=== PATIENT | female | born 1940 | race Caucasian/White ===

== ENCOUNTER 2018-12-07 20:06 | Inpatient (IN) | payer OTHER ==
[2018-12-07] MEDS ORDERED: SODIUM CHLORIDE 0.9% 1000 ML INFUS.BAG IV ONE (20:34)
[2018-12-07] MEDS ORDERED: LORazepam 2 MG/ML SDV VIAL ONE ×3 (20:45→21:20)
--- NOTE | 2018-12-07 20:49 | PDOC ---
History of Present Illness - General Stated Complaint: AMS Time Seen by Provider: 12/07/18 20:08 - History of Present Illness Initial Comments: HPI: 78 y/o female presenting to [facility] from [facility] for altered mental status. Pt unable/unwilling to answer questions at time of interview. Pt has a history of cerebral palsy. Is normally alert, oriented, and converstant at baseline. Wheelchair bound at baseline. Called to discuss case with Health Care Proxy: Stephan Holly, brother, . Confirmed the documented baseline. States he will not be able to come to the bedside as he is also elderly. Medical Hx: - As documented below Review of Systems: Unable to obtain secondary to pt condition. Physical Examination: Constitutional: Elderly adult female in no acute distress or obvious discomfort. Found semi-fowlers on hospital hallway bed. Alert but completely disoriented. Making non-specific sounds. Head: Normocephalic. No obvious external signs of trauma. Eyes: PERRL. Sclerae white. Conjunctiva moist and not injected. Ears: Hearing grossly intact. Nose: No nasal discharge. Neck: Supple, trachea is midline. Cardiovascular / Chest: Regular rate and regular rhythm. No murmur, rubs, clicks, or gallops. Peripheral pulses: radial pulses full. Respiratory: Breathing unlabored. Equal chest rise and fall. Clear to auscultation bilaterally. No stridor, no wheezing, no rhonchi. Gastrointestinal: abdomen is soft, non-tender, non-distended. Neuro: Moving all four extremities spontaneously. Skin: Warm, dry, and intact. No bruising, rashes, or other lesions. MDM: *Reviewed vital signs, nursing notes, and prior visit documentation (if available). 78 y/o female with altered mental status. Febrile. Vitals remarkable for tachycardia without hypotension. Physical exam as described above. CBC remarkable for mild leukocytosis without left shift. No significant electrolyte derangement. No significant acid-base derangement on VBG. Head CT unremarkable for acute process. TSH within normal limits. Required multiple administrations of Ativan, Ketamine, and Benadryl for sedation to obtain medically necessary tests. 12/08/18 00:27 Pt signed out to resident Dr. Prieto after he was verbally appraised of the pts HPI, current ED course, and plan of management. Will follow up on pending urinalysis. Anticipate admission for altered mental status. Past History - Past Medical History Allergies/Adverse Reactions: Allergies Allergy/AdvReac Type Severity Reaction Status Date / Time aspirin Allergy Unknown Verified 12/07/18 20:42 Home Medications: Ambulatory Orders Baclofen [Lioresal -] 10 mg PO TID 12/08/18 Dextran 70/Hypromellose/Pf [Artificial Tears Drops] 1 each OP BID 12/08/18 Docusate Sodium [Colace] 200 mg PO HS 12/08/18 Duloxetine HCl 60 mg PO DAILY 12/08/18 Gabapentin [Neurontin] 300 mg PO Q8H 12/08/18 Levothyroxine [Synthroid -] 75 mcg PO DAILY 12/08/18 Oxycodone HCl/Acetaminophen [Percocet 5-325 mg Tablet] 1 tab PO PRN PRN Sennosides [Senna] 8.6 mg PO DAILY 12/08/18 Lactose-Reduced Food [Ensure Compact] 118 ml PO BID #60 liquid 12/14/18 Multivitamins [Multivit ([facility] Formulary)] 1 tab PO DAILY #30 tab 12/14/18 ED Treatment Course - LABORATORY CBC & Chemistry Diagram: 12/13/18 06:30 12/14/18 07:00 *DC/Admit/Observation/Transfer Diagnosis at time of Disposition: Altered mental status, UTI (urinary tract infection) - Discharge Dispostion Disposition: SNF FACILITY Condition at time of disposition: Improved - Referrals - Patient Instructions - Post Discharge Activity
--- NOTE | 2018-12-07 21:04 | PDOC ---
Documentation entered by Priya Fong SCRIBE, acting as scribe for Farida Foy DO. Farida Fyo DO: This documentation has been prepared by the Ajit womack Daisy, SCRIBE, under my direction and personally reviewed by me in its entirety. I confirm that the documentation accurately reflects all work, treatment, procedures, and medical decision making performed by me. Attending Attestation - Resident Resident Name: Gunnar Zaragoza - ED Attending Attestation I have performed the following: I have examined & evaluated the patient, The case was reviewed & discussed with the resident, I agree w/resident's findings & plan - HPI HPI: 12/07/18 20:39 The patient is a 78YOF who was sent in from [facility] for evaluation of altered mental status. Patient is known to be awake, alert, and nonambulatory at baseline. Patient was sent in today because she became nonverbal with intermittent moaning and agitation. Patient is DNR. - Physicial Exam PE: 12/07/18 20:39 ADULT PHYSICAL EXAM Constitutional: (+) Acutely altered and agitated. (+) Nonverbal, only moaning. Head: Normocephalic. Atraumatic Eyes: (+) Pupils are 3mm and reactive. EOMI. Conjunctivae are not pale. Cardiovascular: Regular rate. Regular rhythm. S1, S2 regular. Distal pulses are 2+ and symmetric. Pulmonary/Chest: No evidence of respiratory distress. Clear to auscultation bilaterally No wheezing, rales or rhonchi. Abdominal: Soft and non-distended. There is no tenderness. Musculoskeletal: Moving all extremities. Skin: No external signs of trauma. Neurological: Awake and oriented x1 (name) - Medical Decision Making 12/07/18 21:02 I, Dr. Farida Foy DO, attest that this document has been prepared under my direction and personally reviewed by me in its entirety. I further attest, that it accurately reflects all work, treatment, procedures and medical decision -making performed by me. 12/07/18 21:02 a/p: 78yo female with hx of CP -normally awake, alert, oriented -altered ms from [facility] -moving all extremities -not hot to touch, will do rectal temp -concern for infection vs cva/bleed vs metabolic enceph -will send labs, cultures, ua, head ct, cxr -will need admission -will need ativan for agitation control to obtain imaging -resident discussed the case with her brother Stephan who is her POA -will monitor and reassess 12/07/18 22:00 pt still very agitated will add ketamine to help with sedation to obtain head ct 12/08/18 01:11 pt with UTI will start rocephin 12/08/18 01:35 pt with a fever rectally pt will need admission for further eval and iv abx for the uti Heart Score/ECG Review - ECG Intrepretation Comment:: 12/07/18 22:00 sinus tach at 124, lafb, no acute st/t wave findings, qtc 468
[2018-12-07 21:12] LABS: VENOUS PC02 43.2 mmHg (41-51); VENOUS PH 7.41 (7.31-7.41)
[2018-12-07 21:15] LABS: VENOUS PO2 24.2 mmHg (30-40)
[2018-12-07 21:16] LABS: BASO % 0.5 % (0-2.0); EOS % 1.5 % (0-4.5); HEMATOCRIT 44.8 % (32.4-45.2); HEMOGLOBIN 14.5 GM/dL (10.7-15.3); LYMPH % 24.4 % (8-40); MCH 30.9 pg (25.7-33.7); MCHC 32.3 g/dl (32.0-36.0); MEAN CELL VOLUME 95.8 fl (80-96); MEAN PLT VOLUME 8.8 fl (7.5-11.1); MONO % 10.1 % (3.8-10.2); NEUT % 63.5 % (42.8-82.8); PLATELET COUNT 295 K/MM3 (134-434); RBC 4.68 M/mm3 (3.60-5.2); RDW 14.1 % (11.6-15.6); WHITE BLOOD COUNT 10.6 K/mm3 (4.0-10.0)
[2018-12-07 21:37] LABS: INR 0.93 (0.83-1.09)
[2018-12-07 21:40] LABS: ACTIVATED PTT 29.2 SECONDS (25.2-36.5)
[2018-12-07 21:51] LABS: ALBUMIN 3.5 g/dl (3.4-5.0); ALK PHOS 123 U/L (45-117); ANION GAP 6 MMOL/L (8-16); BILIRUBIN,TOTAL 0.5 mg/dL (0.2-1); BLOOD UREA NITROGEN 20 mg/dL (7-18); CALCIUM 9.4 mg/dL (8.5-10.1); CHLORIDE 108 mmol/L (98-107); CO2 26 mmol/L (21-32); CREATININE 0.5 mg/dL (0.55-1.3); GLUCOSE,RANDOM 106 mg/dL (74-106); MAGNESIUM 2.5 mg/dL (1.8-2.4); POTASSIUM 4.6 mmol/L (3.5-5.1); SGOT/AST 16 U/L (15-37); SGPT/ALT 23 U/L (13-61); SODIUM 140 mmol/L (136-145); TOT PROT 6.7 g/dl (6.4-8.2)
[2018-12-07] MEDS ORDERED: KETAMINE HCL 200 MG/20 ML VIAL IVPUSH ONE (21:56)
[2018-12-07] MEDS ORDERED: KETAMINE HCL 200 MG/20 ML VIAL ONE (22:00)
[2018-12-08] MEDS ORDERED: ACETAMINOPHEN 1000 MG/100 ML VIAL (NON FORMULARY) IVPB ONE (00:26)
--- NOTE | 2018-12-08 00:38 | PDOC ---
*Physical Exam - Vital Signs Last Vital Signs Temp Pulse Resp BP Pulse Ox 100.6 F H 118 H 20 120/51 L 95 12/08/18 00:13 12/07/18 20:15 12/07/18 20:15 12/07/18 20:15 12/07/18 20:15 - Physical Exam Comments: 12/08/18 02:43 General Appearance: Nourished. No Apparent Distress HEENT: No Pharyngeal Erythema, Tonsillar Exudate, Tonsillar Erythema Neck: No Cervical Lymphadenopathy Respiratory/Chest: Lungs Clear, Normal Breath Sounds. No Crackles, Rales, Rhonchi, Wheezing Cardiovascular: Regular Rhythm, Regular Rate. No Murmur, Gallops, Rubs Gastrointestinal/Abdominal: Normal Bowel Sounds, Soft. No Guarding, Rebound, Tenderness Musculoskeletal: No CVA Tenderness Extremity: Normal Capillary Refill Integumentary: Normal Color, Dry, Warm Neurologic: Arousable. Non-verbal. Moving all four extremities. ED Treatment Course - LABORATORY CBC & Chemistry Diagram: 12/07/18 20:39 12/07/18 20:39 - ADDITIONAL ORDERS Additional order review: Laboratory Results 12/07/18 12/07/18 12/07/18 20:39 20:39 20:39 PT with INR INR PTT (Actin FS) VBG pH POC VBG pCO2 POC VBG pO2 VBG HCO3 VBG O2 Sat (Bright) VBG Base Excess Sodium 140 Potassium 4.6 Chloride 108 H Carbon Dioxide 26 Anion Gap 6 L BUN 20 H Creatinine 0.5 L Est GFR (CKD-EPI)AfAm 105.94 Est GFR (CKD-EPI)NonAf 91.41 Random Glucose 106 Lactic Acid 1.6 Calcium 9.4 Magnesium 2.5 H Total Bilirubin 0.5 AST 16 ALT 23 Alkaline Phosphatase 123 H Creatine Kinase 78 Troponin I < 0.02 Total Protein 6.7 Albumin 3.5 TSH 3.07 Blood Type O POSITIVE Antibody Screen Negative 12/07/18 12/07/18 20:39 20:39 PT with INR 11.00 INR 0.93 PTT (Actin FS) 29.2 VBG pH 7.41 POC VBG pCO2 43.2 POC VBG pO2 24.2 L VBG HCO3 26.8 VBG O2 Sat (Bright) 36.7 L VBG Base Excess 2.3 H Sodium Potassium Chloride Carbon Dioxide Anion Gap BUN Creatinine Est GFR (CKD-EPI)AfAm Est GFR (CKD-EPI)NonAf Random Glucose Lactic Acid Calcium Magnesium Total Bilirubin AST ALT Alkaline Phosphatase Creatine Kinase Troponin I Total Protein Albumin TSH Blood Type Antibody Screen 12/07/18 20:39 RBC 4.68 MCV 95.8 MCHC 32.3 RDW 14.1 MPV 8.8 Neutrophils % 63.5 Lymphocytes % 24.4 Monocytes % 10.1 Eosinophils % 1.5 Basophils % 0.5 - Medications Given in the ED: ED Medications Discontinued Medications Generic Name Dose Route Start Last Admin Trade Name Freq PRN Reason Stop Dose Admin Ketamine HCl 15 mg 12/07/18 21:56 12/07/18 22:06 Ketalar - IVPUSH 12/07/18 21:57 15 mg ONCE ONE Administration Lorazepam 1 mg 12/07/18 20:34 12/07/18 20:53 Ativan Injection - IVPUSH 12/07/18 20:35 1 mg ONCE ONE Administration Lorazepam 1 mg 12/07/18 21:04 12/07/18 21:08 Ativan Injection - IVPUSH 12/07/18 21:05 1 mg ONCE ONE Administration Lorazepam 1 mg 12/07/18 21:19 12/07/18 21:20 Ativan Injection - IM 12/07/18 21:20 1 mg ONCE ONE Administration Sodium Chloride 1,000 ml 12/07/18 20:34 12/07/18 20:53 Normal Saline - IV 12/07/18 20:35 1,000 ml ONCE ONE Administration Progress Note - Progress Note Progress Note: Received Sign out from Dr. Zaragoza. The patient is an 78 year old female with a history of CP who presents for [facility] for evaluate of acute altered mental status. Head CT is unremarkable. Chest plain film is unremarkable. CBC, cmp, are unremarkable. The patient is pending UA and admission for altered mental status. Medical Decision Making - Medical Decision Making 12/08/18 02:44 UA demonstrates positive leuk esterase with elevated wbc consistent with a UTI. We will treat with ceftriaxone here in the ED. The patient will require admission for further management. We discussed the case with the admitting team who accepted the patient for admission. *DC/Admit/Observation/Transfer Diagnosis at time of Disposition: Altered mental status Qualifiers: Altered mental status type: unspecified Qualified Code(s): R41.82 - Altered mental status, unspecified UTI (urinary tract infection) Qualifiers: Urinary tract infection type: site unspecified Hematuria presence: without hematuria Qualified Code(s): N39.0 - Urinary tract infection, site not specified - Discharge Dispostion Condition at time of disposition: Stable Decision to Admit order: Yes - Referrals - Patient Instructions - Post Discharge Activity
[2018-12-08 00:44] LABS: EPI CELLS 0.3 /HPF (0-5/HPF); URINE APPEARANCE CLOUDY; URINE BACTERIA 8065.1 /hpf (NEGATIVE); URINE BILIRUBIN NEGATIVE (NEGATIVE); URINE CASTS 21 /lpf (0-8); URINE COLOR YELLOW; URINE GLUCOSE (UA) NEGATIVE (NEGATIVE); URINE KETONE TRACE (NEGATIVE); URINE LEUK ESTERASE 3+ (NEGATIVE); URINE NITRITE NEGATIVE (NEGATIVE); URINE PROTEIN NEGATIVE (NEGATIVE); URINE RBC 5 /hpf (0-4); URINE UROBILINOGEN 0.2 mg/dL (0.2-1.0); URINE WBC 159 /hpf (0-5)
[2018-12-08] MEDS ORDERED: ACETAMINOPHEN INJECTION 100 ML IVPB ONE (00:46)
[2018-12-08] MEDS ORDERED: CEFTRIAXONE 1 GM in DEXTROSE 5%-WATER - 100 ML IVPB ONE (01:12)
[2018-12-08] MEDS ORDERED: CEFTRIAXONE 1 GM/50 ML BAG ONE (01:16)
--- NOTE | 2018-12-08 02:21 | PN ---
Teaching Attending Note Name of Resident: Aimee Pandey ATTENDING PHYSICIAN STATEMENT I saw and evaluated the patient. I reviewed the resident's note and discussed the case with the resident. I agree with the resident's findings and plan as documented. SUBJECTIVE: Patient is an 78 year old woman with PMH of hypothyroidism and ?constipation who was sent in from [facility] for evaluation of altered mental status. Patient is known to be awake, alert, and nonambulatory at baseline. Not much additional information about her PMH is available from the [place]. Patient was sent in today because she became nonverbal with intermittent moaning and agitation. In the ER she was noted to be agitated and restless and got ativan as well as ketamine. She has DNR/DNI instructions. OBJECTIVE: Awake Vital Signs Period Temp Pulse Resp BP Sys/Zhao Pulse Ox Last 24 Hr 100.6 F-100.6 F 118 20 120/51 95 HEENT: No Jaundice, eye redness or discharge, PERRLA, EOMI. Normocephalic, atraumatic. External ears are normal; No nasal discharge. Neck: Supple, nontender. No palpable adenopathy or thyromegaly. No JVD Chest: Good effort. Clear to auscultation and percussion. Heart: Regular. No S3, rub or murmur Abdomen: Not distended, soft, nontender and no HSM. No rebound or guarding. Normal bowel sounds. Ext: Peripheral pulses intact. No leg edema. Right arevalo ulcer. Skin: Warm and dry. No petechiae, rash or ecchymosis. Neuro: Alert. Oriented to person. CN 2-12 grossly intact. Sensation grossly intact in all four extremities and DTR are symmetric. Psych: Appropriate mood and affect. Current Medications Generic Name Dose Route Start Last Admin Trade Name Freq PRN Reason Stop Dose Admin Heparin Sodium (Porcine) 5,000 unit 12/08/18 10:00 Heparin - SQ Q8H-IV MURTAZA Sodium Chloride 1,000 mls @ 75 mls/hr 12/08/18 02:45 Normal Saline - IV ASDIR MURTAZA Abnormal Lab Results 12/07/18 12/07/18 12/07/18 20:39 20:39 20:39 WBC 10.6 H POC VBG pO2 24.2 L VBG O2 Sat (Bright) 36.7 L VBG Base Excess 2.3 H Chloride 108 H Anion Gap 6 L BUN 20 H Creatinine 0.5 L Magnesium 2.5 H Alkaline Phosphatase 123 H Urine Ketones Ur Leukocyte Esterase 12/08/18 00:06 WBC POC VBG pO2 VBG O2 Sat (Bright) VBG Base Excess Chloride Anion Gap BUN Creatinine Magnesium Alkaline Phosphatase Urine Ketones Trace H Ur Leukocyte Esterase 3+ H ASSESSMENT AND PLAN: 1. Sepsis due to UTI - Abnormal mentation likely due to toxic metabolic encephalopathy. No acute pathology on head CT and CXR. EKG shows sinus tachycardia with no significant ST-T wave changes. Got IV NS in the ER as well as IV Rocephin. Since she is from a [facility], will treat with IV Zosyn pending culture report, and continue IV NS. Will get speech and swallow evaluation, consult PT and ID. Continue treatment for constipation. 2. DVT prophylaxis - Lovenox 40 mg SQ q 24 hours. 3. Advance directives - Full code
--- NOTE | 2018-12-08 02:32 | HP ---
CHIEF COMPLAINT: AMS PCP: [facility] HISTORY OF PRESENT ILLNESS: Patient is a poor historian. Currently Nonverbal. Unable to obtain history. Patient is an 78 yo F with a known history of hypothyroidism, presented from [facility] because of altered mental status. She is known to be awake, alert, and nonambulatory at baseline. Limited information was provided on this patient. In the ED, patient was moaning agitated. She was given a total of 3mg Ativan and ketamine. She was febrile with 100.6 rectal temp. U/a was positive with 3+ LE, 159 WBC. Ceftriaxone was given. Patient is DNR/DNI ER course was notable for: (1) Head CT unremarkable (2) U/a + (3) Tachy, 100.6 Temp Recent Travel: n/a PAST MEDICAL HISTORY: n/a Social History: Smoking: n/a Alcohol: n/a Drugs: n/a Family History: n/a Allergies aspirin Allergy (Unknown, Verified 12/07/18 20:42) HOME MEDICATIONS: REVIEW OF SYSTEMS unable to obtain PHYSICAL EXAMINATION Vital Signs - 24 hr 12/07/18 12/08/18 20:15 00:13 Temperature 100.6 F H 100.6 F H Pulse Rate 118 H Respiratory 20 Rate Blood Pressure 120/51 L O2 Sat by Pulse 95 Oximetry (%) GENERAL: moaning, nonverbal. HEAD: Normal with no signs of trauma. EYES: conjunctiva clear. EARS, NOSE, THROAT: oropharynx clear without exudates. dry mucous membranes LUNGS: CTA b/l. no wheezing, rales, or rhonchi HEART: RRR, no murmurs appreciated, s1, s2 ABDOMEN: Soft, nontender, not distended, normoactive bowel sounds LOWER EXTREMITIES:R ant arevalo wound from movement friction. redness around the area. bleeding. no pus. 2+ pulses, No peripheral edema. Laboratory Results - last 24 hr 12/07/18 12/07/18 12/07/18 20:39 20:39 20:39 WBC 10.6 H RBC 4.68 Hgb 14.5 Hct 44.8 MCV 95.8 MCH 30.9 MCHC 32.3 RDW 14.1 Plt Count 295 MPV 8.8 Absolute Neuts (auto) 6.7 Neutrophils % 63.5 Lymphocytes % 24.4 Monocytes % 10.1 Eosinophils % 1.5 Basophils % 0.5 Nucleated RBC % 0 PT with INR 11.00 INR 0.93 PTT (Actin FS) 29.2 VBG pH 7.41 POC VBG pCO2 43.2 POC VBG pO2 24.2 L VBG HCO3 26.8 VBG O2 Sat (Bright) 36.7 L VBG Base Excess 2.3 H Sodium Potassium Chloride Carbon Dioxide Anion Gap BUN Creatinine Est GFR (CKD-EPI)AfAm Est GFR (CKD-EPI)NonAf Random Glucose Lactic Acid Calcium Magnesium Total Bilirubin AST ALT Alkaline Phosphatase Creatine Kinase Troponin I Total Protein Albumin TSH Urine Color Urine Appearance Urine pH Ur Specific Rosalia Urine Protein Urine Glucose (UA) Urine Ketones Urine Blood Urine Nitrite Urine Bilirubin Urine Urobilinogen Ur Leukocyte Esterase Urine WBC (Auto) Urine RBC (Auto) Urine Casts (Auto) U Epithel Cells (Auto) Urine Bacteria (Auto) Blood Type Antibody Screen 12/07/18 12/07/18 12/07/18 20:39 20:39 20:39 WBC RBC Hgb Hct MCV MCH MCHC RDW Plt Count MPV Absolute Neuts (auto) Neutrophils % Lymphocytes % Monocytes % Eosinophils % Basophils % Nucleated RBC % PT with INR INR PTT (Actin FS) VBG pH POC VBG pCO2 POC VBG pO2 VBG HCO3 VBG O2 Sat (Bright) VBG Base Excess Sodium 140 Potassium 4.6 Chloride 108 H Carbon Dioxide 26 Anion Gap 6 L BUN 20 H Creatinine 0.5 L Est GFR (CKD-EPI)AfAm 105.94 Est GFR (CKD-EPI)NonAf 91.41 Random Glucose 106 Lactic Acid 1.6 Calcium 9.4 Magnesium 2.5 H Total Bilirubin 0.5 AST 16 ALT 23 Alkaline Phosphatase 123 H Creatine Kinase 78 Troponin I < 0.02 Total Protein 6.7 Albumin 3.5 TSH 3.07 Urine Color Urine Appearance Urine pH Ur Specific Rosalia Urine Protein Urine Glucose (UA) Urine Ketones Urine Blood Urine Nitrite Urine Bilirubin Urine Urobilinogen Ur Leukocyte Esterase Urine WBC (Auto) Urine RBC (Auto) Urine Casts (Auto) U Epithel Cells (Auto) Urine Bacteria (Auto) Blood Type O POSITIVE Antibody Screen Negative 12/08/18 00:06 WBC RBC Hgb Hct MCV MCH MCHC RDW Plt Count MPV Absolute Neuts (auto) Neutrophils % Lymphocytes % Monocytes % Eosinophils % Basophils % Nucleated RBC % PT with INR INR PTT (Actin FS) VBG pH POC VBG pCO2 POC VBG pO2 VBG HCO3 VBG O2 Sat (Bright) VBG Base Excess Sodium Potassium Chloride Carbon Dioxide Anion Gap BUN Creatinine Est GFR (CKD-EPI)AfAm Est GFR (CKD-EPI)NonAf Random Glucose Lactic Acid Calcium Magnesium Total Bilirubin AST ALT Alkaline Phosphatase Creatine Kinase Troponin I Total Protein Albumin TSH Urine Color Yellow Urine Appearance Cloudy Urine pH 7.0 Ur Specific Rosalia 1.017 Urine Protein Negative Urine Glucose (UA) Negative Urine Ketones Trace H Urine Blood Trace Urine Nitrite Negative Urine Bilirubin Negative Urine Urobilinogen 0.2 Ur Leukocyte Esterase 3+ H Urine WBC (Auto) 159 Urine RBC (Auto) 5 Urine Casts (Auto) 21 U Epithel Cells (Auto) 0.3 Urine Bacteria (Auto) 8065.1 Blood Type Antibody Screen -EKG: sinus tach at 124, lafb, no acute st/t wave findings, qtc 468 ASSESSMENT/PLAN: 78 yo F with a known history of hypothyroidism, presented from [facility] because of altered mental status. #Acute metabolic encephalopathy and Sepsis 2/2 UTI -U/A + -Tachy, febrile 100.6 -Blood cultures, urine cultures pending -Head CT unremarkable -Cxr Unremarkable -1 x ceftriaxone given in ED -Start Zosyn. Patient from senior living -ID consult: Dr. Valle -1L Bolus NS in ED -IV fluids: NS @75 ml/ hour -Speech/swallow -npo -fall precautions -tylenol prn for fever #Hypothyroidism -on Levothyroxin -med rec #FEN -Iv fluids Ns @ 75ml /hour -monitor -NPO #Dvt ppx -hep sq med-rec needed. dispo: med-surge Visit type - Emergency Visit Emergency Visit: Yes ED Registration Date: 12/08/18 Care time: The patient presented to the Emergency Department on the above date and was hospitalized for further evaluation of their emergent condition. - New Patient This patient is new to me today: Yes Date on this admission: 12/10/18 - Critical Care Critical Care patient: No
[2018-12-08] MEDS ORDERED: PIPERACILLIN/TAZOB 3.375 GM 3.375 GM in DEXTROSE 5%-WATER - 50 ML IVPB SCH (02:45)
[2018-12-08] MEDS ORDERED: PIPERACILLIN/TAZOB 3.375 GM 3.375 GM/50 ML BAG IVPB ONE (02:51)
[2018-12-08] MEDS ORDERED: ACETAMINOPHEN 1000 MG/100 ML VIAL (NON FORMULARY) IVPB PRN (02:52)
[2018-12-08] MEDS: SODIUM CHLORIDE 1,000 ML IV SCH (02:59)
[2018-12-08] MEDS: PIPERACILLIN/TAZOB 3.375 GM 3.375 GM in DEXTROSE 5%-WATER - 50 ML IVPB SCH ×3 (02:59→18:09)
[2018-12-08] MEDS ORDERED: HEPARIN NA (PORCINE) 5,000 UNITS/ML 1ML VIAL ONE ×2 (03:54→07:19)
[2018-12-08 06:06] LABS: BASO % 0.4 % (0-2.0); HEMATOCRIT 43.3 % (32.4-45.2); HEMOGLOBIN 14.2 GM/dL (10.7-15.3); LYMPH % 9.2 % (8-40); MCHC 32.8 g/dl (32.0-36.0); MEAN CELL VOLUME 94.7 fl (80-96); MEAN PLT VOLUME 8.4 fl (7.5-11.1); MONO % 8.9 % (3.8-10.2); NEUT % 81.5 % (42.8-82.8); PLATELET COUNT 313 K/MM3 (134-434); RBC 4.57 M/mm3 (3.60-5.2); RDW 13.8 % (11.6-15.6); WHITE BLOOD COUNT 15.1 K/mm3 (4.0-10.0)
[2018-12-08] MEDS ORDERED: SODIUM CHLORIDE 500 ML IV STA (06:47)
[2018-12-08 07:00] LABS: ALBUMIN 3.4 g/dl (3.4-5.0); CALCIUM 8.1 mg/dL (8.5-10.1); CREATININE 0.5 mg/dL (0.55-1.3); MAGNESIUM 1.8 mg/dL (1.8-2.4); PHOSPHOROUS 2.8 mg/dL (2.5-4.9); POTASSIUM 4.2 mmol/L (3.5-5.1); TOT PROT 6.5 g/dl (6.4-8.2)
[2018-12-08] MEDS: HEPARIN NA (PORCINE) 5,000 UNITS/ML 1ML VIAL SQ SCH ×3 (07:22→22:19)
--- NOTE | 2018-12-08 11:33 | PN ---
Physical Exam: SUBJECTIVE: Patient seen and examined. Pt. non-verbal, eyes closed, writhing around on the stretcher. OBJECTIVE: Vital Signs Period Temp Pulse Resp BP Sys/Zhao Pulse Ox Last 24 Hr 100.6 F-100.6 F 118-118 20-20 120-120/51-51 95-95 GENERAL: The patient is agitated, writhing around HEAD: Normal with no signs of trauma. EYES: Pupils fixed, sclera anicteric, conjunctiva clear. ENT: Ears normal, nares patent, oropharynx clear without exudates, dry mucous membranes. LUNGS: Breath sounds equal, clear to auscultation bilaterally, no wheezes, no crackles, no accessory muscle use. HEART: Regular rate and rhythm, S1, S2 without murmur ABDOMEN: Soft, tender to palpation?, nondistended, normoactive bowel sounds EXTREMITIES: 2+ dorsal pedal pulses, warm, well-perfused, no edema, b/l anterior arevalo wounds with erythema along the length of the arevalo. NEUROLOGICAL: Normal speech, gait not observed. PSYCH: Normal mood, normal affect. SKIN: Warm, dry, normal turgor, no rashes or lesions noted Laboratory Results - last 24 hr 12/07/18 12/07/18 12/07/18 20:39 20:39 20:39 WBC 10.6 H RBC 4.68 Hgb 14.5 Hct 44.8 MCV 95.8 MCH 30.9 MCHC 32.3 RDW 14.1 Plt Count 295 MPV 8.8 Absolute Neuts (auto) 6.7 Neutrophils % 63.5 Lymphocytes % 24.4 Monocytes % 10.1 Eosinophils % 1.5 Basophils % 0.5 Nucleated RBC % 0 PT with INR 11.00 INR 0.93 PTT (Actin FS) 29.2 VBG pH 7.41 POC VBG pCO2 43.2 POC VBG pO2 24.2 L VBG HCO3 26.8 VBG O2 Sat (Bright) 36.7 L VBG Base Excess 2.3 H Sodium Potassium Chloride Carbon Dioxide Anion Gap BUN Creatinine Est GFR (CKD-EPI)AfAm Est GFR (CKD-EPI)NonAf Random Glucose Lactic Acid Calcium Phosphorus Magnesium Total Bilirubin AST ALT Alkaline Phosphatase Creatine Kinase Troponin I Total Protein Albumin TSH Urine Color Urine Appearance Urine pH Ur Specific [place] Urine Protein Urine Glucose (UA) Urine Ketones Urine Blood Urine Nitrite Urine Bilirubin Urine Urobilinogen Ur Leukocyte Esterase Urine WBC (Auto) Urine RBC (Auto) Urine Casts (Auto) U Epithel Cells (Auto) Urine Bacteria (Auto) Blood Type Antibody Screen 12/07/18 12/07/18 12/07/18 20:39 20:39 20:39 WBC RBC Hgb Hct MCV MCH MCHC RDW Plt Count MPV Absolute Neuts (auto) Neutrophils % Lymphocytes % Monocytes % Eosinophils % Basophils % Nucleated RBC % PT with INR INR PTT (Actin FS) VBG pH POC VBG pCO2 POC VBG pO2 VBG HCO3 VBG O2 Sat (Bright) VBG Base Excess Sodium 140 Potassium 4.6 Chloride 108 H Carbon Dioxide 26 Anion Gap 6 L BUN 20 H Creatinine 0.5 L Est GFR (CKD-EPI)AfAm 105.94 Est GFR (CKD-EPI)NonAf 91.41 Random Glucose 106 Lactic Acid 1.6 Calcium 9.4 Phosphorus Magnesium 2.5 H Total Bilirubin 0.5 AST 16 ALT 23 Alkaline Phosphatase 123 H Creatine Kinase 78 Troponin I < 0.02 Total Protein 6.7 Albumin 3.5 TSH 3.07 Urine Color Urine Appearance Urine pH Ur Specific [place] Urine Protein Urine Glucose (UA) Urine Ketones Urine Blood Urine Nitrite Urine Bilirubin Urine Urobilinogen Ur Leukocyte Esterase Urine WBC (Auto) Urine RBC (Auto) Urine Casts (Auto) U Epithel Cells (Auto) Urine Bacteria (Auto) Blood Type O POSITIVE Antibody Screen Negative 12/08/18 12/08/18 12/08/18 00:06 05:20 05:20 WBC 15.1 H RBC 4.57 Hgb 14.2 Hct 43.3 MCV 94.7 MCH 31.0 MCHC 32.8 RDW 13.8 Plt Count 313 MPV 8.4 Absolute Neuts (auto) 12.3 H Neutrophils % 81.5 D Lymphocytes % 9.2 D Monocytes % 8.9 Eosinophils % 0.0 D Basophils % 0.4 Nucleated RBC % 0 PT with INR INR PTT (Actin FS) VBG pH POC VBG pCO2 POC VBG pO2 VBG HCO3 VBG O2 Sat (Bright) VBG Base Excess Sodium 134 L Potassium 4.2 Chloride 105 Carbon Dioxide 19 L Anion Gap 11 BUN 10 Creatinine 0.5 L Est GFR (CKD-EPI)AfAm 105.94 Est GFR (CKD-EPI)NonAf 91.41 Random Glucose 134 H Lactic Acid Calcium 8.1 L Phosphorus 2.8 Magnesium 1.8 Total Bilirubin 1.0 AST 47 H ALT 26 Alkaline Phosphatase 117 Creatine Kinase Troponin I Total Protein 6.5 Albumin 3.4 TSH 1.62 Urine Color Yellow Urine Appearance Cloudy Urine pH 7.0 Ur Specific [place] 1.017 Urine Protein Negative Urine Glucose (UA) Negative Urine Ketones Trace H Urine Blood Trace Urine Nitrite Negative Urine Bilirubin Negative Urine Urobilinogen 0.2 Ur Leukocyte Esterase 3+ H Urine WBC (Auto) 159 Urine RBC (Auto) 5 Urine Casts (Auto) 21 U Epithel Cells (Auto) 0.3 Urine Bacteria (Auto) 8065.1 Blood Type Antibody Screen Active Medications Home Medications Medication Instructions Recorded Baclofen [Lioresal -] 10 mg PO TID 12/08/18 Dextran 70/Hypromellose/Pf 1 each OP BID 12/08/18 [Artificial Tears Drops] Docusate Sodium [Colace] 200 mg PO HS 12/08/18 Duloxetine HCl 60 mg PO DAILY 12/08/18 Gabapentin [Neurontin] 300 mg PO Q8H 12/08/18 Levothyroxine [Synthroid -] 75 mcg PO DAILY 12/08/18 Oxycodone HCl/Acetaminophen 1 tab PO PRN PRN 12/08/18 [Percocet 5-325 mg Tablet] Sennosides [Senna] 8.6 mg PO DAILY 12/08/18 Current Medications Acetaminophen (Ofirmev Injection -) 1,000 mg IVPB Q6H PRN PRN Reason: FEVER Heparin Sodium (Porcine) (Heparin -) 5,000 unit SQ TID MURTAZA Last Admin: 12/09/18 06:07 Dose: 5,000 unit Sodium Chloride (Normal Saline -) 1,000 mls @ 75 mls/hr IV ASDIR MURTAZA Last Admin: 12/09/18 03:00 Dose: 75 mls/hr Piperacillin Sod/Tazobactam (Sod 3.375 gm/ Dextrose) 50 mls @ 100 mls/hr IVPB Q8H-IV MURTAZA; Protocol ASSESSMENT/PLAN: 78 yo F with a known history of hypothyroidism, presented from [facility] because of altered mental status. #Acute metabolic encephalopathy likely 2/2 UTI U/A + Tachy, febrile 100.6 on admission Blood cultures, urine cultures pending Head CT: unremarkable- moderate volume loss, dilated ventricles CXR: Unremarkable 1 x ceftriaxone given in ED c/w Zosyn ID consult appreciated (Dr. Valle) 1L Bolus NS in ED IVF Speech/swallow consult appreciated- NPO Fall precautions tylenol prn for fever #Hypothyroidism Hold PO Synthroid c/w 75mcg IV #FEN NS @ 75ml /hour monitor electrolytes and replete as needed NPO #Dvt Ppx. Hep SQ Visit type - Emergency Visit Emergency Visit: Yes ED Registration Date: 12/08/18 Care time: The patient presented to the Emergency Department on the above date and was hospitalized for further evaluation of their emergent condition. - New Patient This patient is new to me today: Yes Date on this admission: 12/08/18 - Critical Care Critical Care patient: No - Discharge Referral Referred to [facility] Med P.C.: No
--- NOTE | 2018-12-08 14:01 | CONSULT ---
Admitting History and Physical - Primary Care Physician PCP: Chip Mcdaniels - Admission History of Present Illness: 78 yo F with a known history of hypothyroidism, presented from [facility] because of altered mental status. Per pt's , pt is verbal, non ambulatory, good PO intake as baseline. Pt seen in bed, writhing around bed, eyes cliosed, vocalizing, no verbalizations. Good vocal quality. Weak, reflexive cough. Selected Entries 12/07/18 12/08/18 20:15 00:13 Temperature 100.6 F H 100.6 F H Laboratory Tests 12/07/18 12/08/18 20:39 05:20 WBC 10.6 H 15.1 H History Source: Family Member Limitations to Obtaining History: Clinical Condition - Smoking History Smoking history: Unknown if ever smoked - Alcohol/Substance Use Hx Alcohol Use: No History - Admission Reason For Visit: [facility] Recommendations - Speech Evaluation, Impression/Plan Impression: Continue NPO due to poor ELLIE. - Dysphagia Impressions/Plan Dysphagia Impressions: Risk of Aspiration, Too Lethargic to Assess *Silent aspiration: cannot be R/O at bedside
--- NOTE | 2018-12-08 14:55 | EKG ---
Test Reason : Blood Pressure : / mmHG Vent. Rate : 124 BPM Atrial Rate : 124 BPM P-R Int : 158 ms QRS Dur : 076 ms QT Int : 326 ms P-R-T Axes : 059 -55 057 degrees QTc Int : 468 ms POOR DATA QUALITY, INTERPRETATION MAY BE ADVERSELY AFFECTED SINUS TACHYCARDIA LEFT ANTERIOR FASCICULAR BLOCK CANNOT RULE OUT INFERIOR INFARCT (MASKED BY FASCICULAR BLOCK?) , AGE UNDETERMINED ABNORMAL ECG NO PREVIOUS ECGS AVAILABLE Confirmed by CARLO PERLA MD ([id number]) on 12/08/2018 2:55:11 PM Referred By: Confirmed By:CARLO PERLA MD
[2018-12-08] MEDS ORDERED: DEXTROSE 5%-WATER - 50 ML IVPB ONE (17:55)
[2018-12-08] MEDS ORDERED: PIPERACILLIN/TAZOBACTAM 3.375 GM VIAL IVPB ONE (17:55)
--- NOTE | 2018-12-08 18:08 | PN ---
Teaching Attending Note Name of Resident: Vinny Lamas ATTENDING PHYSICIAN STATEMENT I saw and evaluated the patient. I reviewed the resident's note and discussed the case with the resident. I agree with the resident's findings and plan as documented. SUBJECTIVE: Non-verbal currently, not participating in medical interview. Agitated, intermittently aggressive. OBJECTIVE: Febrile - Tmax 100.6, HR 118 Last Vital Signs Temp Pulse Resp BP Pulse Ox 99.3 F 99 H 22 H 149/92 95 12/08/18 14:05 12/08/18 14:05 12/08/18 14:05 12/08/18 14:12/08/18 11:51 HEENT - Atraumatic, Normocephalic. Not opening eyes spontaneously. No signs of neck stiffness or photophobia. Neuro - Not responding to questions or following commands. Eyes shut. DYLAN. Moving all 4 extremities. Intermittent agitation Heart - S1, S2, SM Lungs - clear to auscultation Abdomen - Soft, non-tender. Bowel Sounds normal. Extremities - no edema. No calf tenderness. Bilateral LE bruising with skin tears over shins. No rash. Laboratory Results - last 24 hr 12/07/18 12/07/18 12/07/18 20:39 20:39 20:39 WBC 10.6 H RBC 4.68 Hgb 14.5 Hct 44.8 MCV 95.8 MCH 30.9 MCHC 32.3 RDW 14.1 Plt Count 295 MPV 8.8 Absolute Neuts (auto) 6.7 Neutrophils % 63.5 Lymphocytes % 24.4 Monocytes % 10.1 Eosinophils % 1.5 Basophils % 0.5 Nucleated RBC % 0 PT with INR 11.00 INR 0.93 PTT (Actin FS) 29.2 VBG pH 7.41 POC VBG pCO2 43.2 POC VBG pO2 24.2 L VBG HCO3 26.8 VBG O2 Sat (Bright) 36.7 L VBG Base Excess 2.3 H Sodium Potassium Chloride Carbon Dioxide Anion Gap BUN Creatinine Est GFR (CKD-EPI)AfAm Est GFR (CKD-EPI)NonAf POC Glucometer Random Glucose Lactic Acid Calcium Phosphorus Magnesium Total Bilirubin AST ALT Alkaline Phosphatase Creatine Kinase Troponin I Total Protein Albumin TSH Urine Color Urine Appearance Urine pH Ur Specific [place] Urine Protein Urine Glucose (UA) Urine Ketones Urine Blood Urine Nitrite Urine Bilirubin Urine Urobilinogen Ur Leukocyte Esterase Urine WBC (Auto) Urine RBC (Auto) Urine Casts (Auto) U Epithel Cells (Auto) Urine Bacteria (Auto) Blood Type Antibody Screen 12/07/18 12/07/18 12/07/18 20:39 20:39 20:39 WBC RBC Hgb Hct MCV MCH MCHC RDW Plt Count MPV Absolute Neuts (auto) Neutrophils % Lymphocytes % Monocytes % Eosinophils % Basophils % Nucleated RBC % PT with INR INR PTT (Actin FS) VBG pH POC VBG pCO2 POC VBG pO2 VBG HCO3 VBG O2 Sat (Bright) VBG Base Excess Sodium 140 Potassium 4.6 Chloride 108 H Carbon Dioxide 26 Anion Gap 6 L BUN 20 H Creatinine 0.5 L Est GFR (CKD-EPI)AfAm 105.94 Est GFR (CKD-EPI)NonAf 91.41 POC Glucometer Random Glucose 106 Lactic Acid 1.6 Calcium 9.4 Phosphorus Magnesium 2.5 H Total Bilirubin 0.5 AST 16 ALT 23 Alkaline Phosphatase 123 H Creatine Kinase 78 Troponin I < 0.02 Total Protein 6.7 Albumin 3.5 TSH 3.07 Urine Color Urine Appearance Urine pH Ur Specific [place] Urine Protein Urine Glucose (UA) Urine Ketones Urine Blood Urine Nitrite Urine Bilirubin Urine Urobilinogen Ur Leukocyte Esterase Urine WBC (Auto) Urine RBC (Auto) Urine Casts (Auto) U Epithel Cells (Auto) Urine Bacteria (Auto) Blood Type O POSITIVE Antibody Screen Negative 12/08/18 12/08/18 12/08/18 00:06 05:20 05:20 WBC 15.1 H RBC 4.57 Hgb 14.2 Hct 43.3 MCV 94.7 MCH 31.0 MCHC 32.8 RDW 13.8 Plt Count 313 MPV 8.4 Absolute Neuts (auto) 12.3 H Neutrophils % 81.5 D Lymphocytes % 9.2 D Monocytes % 8.9 Eosinophils % 0.0 D Basophils % 0.4 Nucleated RBC % 0 PT with INR INR PTT (Actin FS) VBG pH POC VBG pCO2 POC VBG pO2 VBG HCO3 VBG O2 Sat (Bright) VBG Base Excess Sodium 134 L Potassium 4.2 Chloride 105 Carbon Dioxide 19 L Anion Gap 11 BUN 10 Creatinine 0.5 L Est GFR (CKD-EPI)AfAm 105.94 Est GFR (CKD-EPI)NonAf 91.41 POC Glucometer Random Glucose 134 H Lactic Acid Calcium 8.1 L Phosphorus 2.8 Magnesium 1.8 Total Bilirubin 1.0 AST 47 H ALT 26 Alkaline Phosphatase 117 Creatine Kinase Troponin I Total Protein 6.5 Albumin 3.4 TSH 1.62 Urine Color Yellow Urine Appearance Cloudy Urine pH 7.0 Ur Specific [place] 1.017 Urine Protein Negative Urine Glucose (UA) Negative Urine Ketones Trace H Urine Blood Trace Urine Nitrite Negative Urine Bilirubin Negative Urine Urobilinogen 0.2 Ur Leukocyte Esterase 3+ H Urine WBC (Auto) 159 Urine RBC (Auto) 5 Urine Casts (Auto) 21 U Epithel Cells (Auto) 0.3 Urine Bacteria (Auto) 8065.1 Blood Type Antibody Screen 12/08/18 16:42 WBC RBC Hgb Hct MCV MCH MCHC RDW Plt Count MPV Absolute Neuts (auto) Neutrophils % Lymphocytes % Monocytes % Eosinophils % Basophils % Nucleated RBC % PT with INR INR PTT (Actin FS) VBG pH POC VBG pCO2 POC VBG pO2 VBG HCO3 VBG O2 Sat (Bright) VBG Base Excess Sodium Potassium Chloride Carbon Dioxide Anion Gap BUN Creatinine Est GFR (CKD-EPI)AfAm Est GFR (CKD-EPI)NonAf POC Glucometer 153 Random Glucose Lactic Acid Calcium Phosphorus Magnesium Total Bilirubin AST ALT Alkaline Phosphatase Creatine Kinase Troponin I Total Protein Albumin TSH Urine Color Urine Appearance Urine pH Ur Specific [place] Urine Protein Urine Glucose (UA) Urine Ketones Urine Blood Urine Nitrite Urine Bilirubin Urine Urobilinogen Ur Leukocyte Esterase Urine WBC (Auto) Urine RBC (Auto) Urine Casts (Auto) U Epithel Cells (Auto) Urine Bacteria (Auto) Blood Type Antibody Screen Current Medications Generic Name Dose Route Start Last Admin Trade Name Freq PRN Reason Stop Dose Admin Acetaminophen 1,000 mg 12/08/18 02:52 Ofirmev Injection - IVPB Q6H PRN FEVER Heparin Sodium (Porcine) 5,000 unit 12/08/18 06:00 12/08/18 15:43 Heparin - SQ Not Given TID MURTAZA Sodium Chloride 1,000 mls @ 75 mls/hr 12/08/18 02:45 12/08/18 02:59 Normal Saline - IV 75 mls/hr ASDIR MURTAZA Administration Piperacillin Sod/Tazobactam 50 mls @ 100 mls/hr 12/08/18 02:45 Sod 3.375 gm/ Dextrose IVPB Q8H-IV MURTAZA Protocol Piperacillin Sod/Tazobactam 50 mls @ 100 mls/hr 12/08/18 03:00 12/08/18 10:47 Sod 3.375 gm/ Dextrose IVPB 12/08/18 18:29 100 mls/hr Q8H-IV MURTAZA Administration Protocol Home Medications Medication Instructions Recorded Baclofen [Lioresal -] 10 mg PO TID 12/08/18 Dextran 70/Hypromellose/Pf 1 each OP BID 12/08/18 [Artificial Tears Drops] Docusate Sodium [Colace] 200 mg PO HS 12/08/18 Duloxetine HCl 60 mg PO DAILY 12/08/18 Gabapentin [Neurontin] 300 mg PO Q8H 12/08/18 Levothyroxine [Synthroid -] 75 mcg PO DAILY 12/08/18 Oxycodone HCl/Acetaminophen 1 tab PO PRN PRN 12/08/18 [Percocet 5-325 mg Tablet] Sennosides [Senna] 8.6 mg PO DAILY 12/08/18 ASSESSMENT AND PLAN: 78 year old female non-ambulatory [place] resident with history of Hypothyroidism, sent to ED with altered mental status. In the ED she was agitated requiring Ativan and Ketamine. ECG - sinus tach at 124, lafb, no acute st/t wave findings, qtc 468 CT Head - no acute intracranial findings. 1. Acute Metabolic Encephalopathy and Sepsis secondary to UTI UA positive for LE, WBCs, Bacteria Leukocytosis, Fever, tachycardia IV hydration ongoing Empirically given IV Zosyn in ED. ID consulted. NPO pending mental status change/swallow eval. B12, RPR, TSH 2. Hypothyroidism Continue Levothyroxine. 3. Wounds/Ecchymoses LEs secondary to ambulatory dysfunction/falls Wound Care and PT requested. DVT Px - Heparin SQ
[2018-12-08] MEDS ORDERED: HALOPERIDOL LACTATE 5 MG/ML IM ONE (18:55)
--- NOTE | 2018-12-08 23:43 | PN ---
Progress Note (short form) - Note Progress Note: ID CONSULT DICTATED UTI R/O SEPSIS SECONDARY TO UTI TOXIC METABOLIC ENCEPHALOPATHY AWAIT C/S EMPIRIC CEFTRIAXONE
[2018-12-09] MEDS: SODIUM CHLORIDE 1,000 ML IV SCH (03:00)
[2018-12-09] MEDS: HEPARIN NA (PORCINE) 5,000 UNITS/ML 1ML VIAL SQ SCH ×4 (06:07→21:12)
[2018-12-09 07:15] LABS: BASO % 0.2 % (0-2.0); HEMATOCRIT 40.5 % (32.4-45.2); HEMOGLOBIN 13.5 GM/dL (10.7-15.3); LYMPH % 8.3 % (8-40); MCH 31.1 pg (25.7-33.7); MCHC 33.2 g/dl (32.0-36.0); MEAN CELL VOLUME 93.4 fl (80-96); MONO % 9.4 % (3.8-10.2); NEUT % 82.1 % (42.8-82.8); PLATELET COUNT 280 K/MM3 (134-434); RBC 4.34 M/mm3 (3.60-5.2); WHITE BLOOD COUNT 14.7 K/mm3 (4.0-10.0)
[2018-12-09] MEDS ORDERED: SODIUM CHLORIDE 1,000 ML IV SCH (07:35)
[2018-12-09 07:52] LABS: ALBUMIN 3.1 g/dl (3.4-5.0); BILIRUBIN,TOTAL 1.2 mg/dL (0.2-1); CALCIUM 8.5 mg/dL (8.5-10.1); CREATININE 0.5 mg/dL (0.55-1.3); PHOSPHOROUS 2.4 mg/dL (2.5-4.9); POTASSIUM 3.2 mmol/L (3.5-5.1); TOT PROT 5.8 g/dl (6.4-8.2)
[2018-12-09] MEDS ORDERED: POTASSIUM PHOSPHATE 15 MM in DEXTROSE 5%-WATER - 250 ML IVPB ONE (08:06)
[2018-12-09] MEDS: KCL 10 MEQ IVPB 10 MEQ/100 ML INFUS.BAG IVPB SCH ×2 (08:15→09:15)
[2018-12-09] MEDS ORDERED: SODIUM CHLORIDE IVPB STA (09:36)
[2018-12-09] MEDS ORDERED: POTASSIUM CHLORIDE IVPB STA (09:36)
--- NOTE | 2018-12-09 11:05 | PN ---
Teaching Attending Note Name of Resident: Vinny Lamas ATTENDING PHYSICIAN STATEMENT I saw and evaluated the patient. I reviewed the resident's note and discussed the case with the resident. I agree with the resident's findings and plan as documented. SUBJECTIVE: OBJECTIVE: patient is confused and agitated she is on restraints due to risk of falls s1 and s2 rrr lungs cta no edema, but bruises on the lower ext. ASSESSMENT AND PLAN: 78 year old female non-ambulatory [place] resident with history of Hypothyroidism, sent to ED with altered mental status. CT Head - no acute intracranial findings. 1. Acute Metabolic Encephalopathy and Sepsis secondary to UTI UA positive for LE, WBCs, Bacteria Leukocytosis, Fever, tachycardia IV hydration ongoing Empirically given IV Zosyn in ED. ID consulted. NPO pending mental status change/swallow eval. B12, RPR, TSH 2. Hypothyroidism Continue Levothyroxine. 3. Wounds/Ecchymoses LEs secondary to ambulatory dysfunction/falls Wound Care and PT requested. DVT Px - Heparin SQ
--- NOTE | 2018-12-09 11:27 | PN ---
Physical Exam: SUBJECTIVE: Patient seen and examined. Pt. received Haldol 3mg overnight for continued agitation. Unable to get EKG. Earlier yesterday evening Pt. was noted to have increased abdominal tenderness and found to have retained 695mls of urine. Pt. was straight catherized. Pt. was incontinent overnight x 2 afterwards. No fevers noted overnight. later in day, attmept was made to place NGT, however was unable to confirm placement of tube with radiology. In addition Pt.'s mental status improved such that Pt. was able to verbally communicate and make needs known, in addition to being able to make purposeful movement. Decision was made to D/c NGT, and reassess swallowing ability in AM for diet order. OBJECTIVE: Vital Signs Period Temp Pulse Resp BP Sys/Zhao Pulse Ox Last 24 Hr 98.1 F-99.6 F 99-135 20-24 103-149/66-92 95-95 GENERAL: The patient is agitated, writhing around, opens eyes today on command. HEAD: Normal with no signs of trauma. EYES: Pupils sluggish, sclera anicteric, conjunctiva clear. ENT: Ears normal, nares patent, oropharynx clear without exudates, dry mucous membranes. LUNGS: Coarse breath sounds equal, clear to auscultation bilaterally, no wheezes , no crackles, no accessory muscle use. HEART: Regular rate and rhythm, S1, S2 without murmur ABDOMEN: Soft, tender to palpation?, nondistended, normoactive bowel sounds EXTREMITIES: 2+ dorsal pedal pulses, warm, well-perfused, no edema, b/l anterior arevalo wounds with erythema along the length of the arevalo. NEUROLOGICAL: Normal speech, gait not observed. PSYCH: Normal mood, normal affect. SKIN: Warm, dry, normal turgor, no rashes or lesions noted Laboratory Results - last 24 hr 12/08/18 12/08/18 12/08/18 16:42 20:15 20:15 WBC RBC Hgb Hct MCV MCH MCHC RDW Plt Count MPV Absolute Neuts (auto) Neutrophils % Lymphocytes % Monocytes % Eosinophils % Basophils % Nucleated RBC % Sodium Potassium Chloride Carbon Dioxide Anion Gap BUN Creatinine Est GFR (CKD-EPI)AfAm Est GFR (CKD-EPI)NonAf POC Glucometer 153 Random Glucose Calcium Phosphorus Magnesium Total Bilirubin AST ALT Alkaline Phosphatase Total Protein Albumin Vitamin B12 698 RPR Titer Nonreactive 12/09/18 12/09/18 12/09/18 05:00 06:04 06:59 WBC 14.7 H RBC 4.34 Hgb 13.5 Hct 40.5 MCV 93.4 MCH 31.1 MCHC 33.2 RDW 14.0 Plt Count 280 MPV 9.0 Absolute Neuts (auto) 12.1 H Neutrophils % 82.1 Lymphocytes % 8.3 Monocytes % 9.4 Eosinophils % 0.0 Basophils % 0.2 Nucleated RBC % 0 Sodium Potassium Chloride Carbon Dioxide Anion Gap BUN Creatinine Est GFR (CKD-EPI)AfAm Est GFR (CKD-EPI)NonAf POC Glucometer 149 145 Random Glucose Calcium Phosphorus Magnesium Total Bilirubin AST ALT Alkaline Phosphatase Total Protein Albumin Vitamin B12 RPR Titer 12/09/18 06:59 WBC RBC Hgb Hct MCV MCH MCHC RDW Plt Count MPV Absolute Neuts (auto) Neutrophils % Lymphocytes % Monocytes % Eosinophils % Basophils % Nucleated RBC % Sodium 143 Potassium 3.2 L Chloride 112 H Carbon Dioxide 20 L Anion Gap 11 BUN 20 H Creatinine 0.5 L Est GFR (CKD-EPI)AfAm 105.94 Est GFR (CKD-EPI)NonAf 91.41 POC Glucometer Random Glucose 131 H Calcium 8.5 Phosphorus 2.4 L Magnesium 2.0 Total Bilirubin 1.2 H AST 134 H ALT 59 Alkaline Phosphatase 124 H Total Protein 5.8 L Albumin 3.1 L Vitamin B12 RPR Titer Active Medications Home Medications Medication Instructions Recorded Baclofen [Lioresal -] 10 mg PO TID 12/08/18 Dextran 70/Hypromellose/Pf 1 each OP BID 12/08/18 [Artificial Tears Drops] Docusate Sodium [Colace] 200 mg PO HS 12/08/18 Duloxetine HCl 60 mg PO DAILY 12/08/18 Gabapentin [Neurontin] 300 mg PO Q8H 12/08/18 Levothyroxine [Synthroid -] 75 mcg PO DAILY 12/08/18 Oxycodone HCl/Acetaminophen 1 tab PO PRN PRN 12/08/18 [Percocet 5-325 mg Tablet] Sennosides [Senna] 8.6 mg PO DAILY 12/08/18 Current Medications Acetaminophen (Ofirmev Injection -) 1,000 mg IVPB Q6H PRN PRN Reason: FEVER Heparin Sodium (Porcine) (Heparin -) 5,000 unit SQ TID MURTAZA Last Admin: 12/09/18 06:07 Dose: 5,000 unit Piperacillin Sod/Tazobactam (Sod 3.375 gm/ Dextrose) 50 mls @ 100 mls/hr IVPB Q8H-IV MURTAZA; Protocol Potassium Phosphate 15 mm/ (Dextrose) 255 mls @ 62.5 mls/hr IVPB ONCE ONE Stop: 12/09/18 12:10 Potassium Chloride 20 meq/ (Sodium Chloride) 510 mls @ 500 mls/hr IVPB ASDIR STA Stop: 12/09/18 10:37 Potassium Chloride/Sodium Chloride (Ns+20 Meq Kcl -) 20 meq in 1,000 mls @ 100 mls/hr IV ASDIR MURTAZA Levothyroxine Sodium (Synthroid Injection -) 75 mcg IVPUSH DAILY MURTAZA ASSESSMENT/PLAN: 78 yo F with a known history of hypothyroidism, presented from [facility] because of altered mental status. #Acute metabolic encephalopathy likely 2/2 UTI U/A +, UCx. positive for Alpha-hemolytic strep Tachy, febrile 100.6 on admission Blood cultures, urine cultures pending Head CT: unremarkable- moderate volume loss, dilated ventricles CXR: Unremarkable 1 x ceftriaxone given in ED c/w Zosyn ID consult appreciated (Dr. Valle) 1L Bolus NS in ED IVF Speech/swallow consult appreciated- NPO Fall precautions tylenol prn for fever Pt. was straight catherized for 695ccs retained urine. Low threshold to bladder scan and catheterized. #Transaminitis Pt. unable to sit still for RUQ US. RUQ tenderness AST: 134 up from 59. ALT: 59 ALP: 124 #Hypothyroidism Hold PO Synthroid c/w 75mcg IV #FEN NS @ 75ml /hour monitor electrolytes and replete as needed NPO #Dvt Ppx. Hep SQ Visit type - Emergency Visit Emergency Visit: Yes ED Registration Date: 12/08/18 Care time: The patient presented to the Emergency Department on the above date and was hospitalized for further evaluation of their emergent condition. - New Patient This patient is new to me today: No - Critical Care Critical Care patient: No - Discharge Referral Referred to [facility] Med P.C.: No
[2018-12-09] MEDS: LEVOTHYROXINE SODIUM 100 MCG VIAL IVPUSH SCH (11:37)
[2018-12-09] MEDS: SODIUM CHLORIDE 0.9%/KCL 20 MEQ/1,000 ML INFUS.BAG IV SCH (12:25)
[2018-12-09] MEDS ORDERED: CEFTRIAXONE 1 GM in DEXTROSE 5%-WATER - 50 ML IVPB SCH (12:45)
[2018-12-09] MEDS ORDERED: cefTRIAXone SODIUM 1 GM VIAL ONE (13:11)
[2018-12-09] MEDS ORDERED: DEXTROSE 5%-WATER - 50 ML IVPB ONE (13:11)
[2018-12-09] MEDS: CEFTRIAXONE 1 GM in DEXTROSE 5%-WATER - 50 ML IVPB SCH (13:12)
[2018-12-09] MEDS: NYSTATIN 100,000 UNIT/GM TOPICAL CREAM 15 GM TUBE TP SCH ×2 (16:14→21:13)
--- NOTE | 2018-12-09 19:10 | PN ---
Progress Note, Physician History of Present Illness: AGITATED TEMPS DOWN AFEBRILE BC (-) URINE C/S STREP SP - Current Medication List Current Medications: Active Medications Acetaminophen (Ofirmev Injection -) 1,000 mg IVPB Q6H PRN PRN Reason: FEVER Heparin Sodium (Porcine) (Heparin -) 5,000 unit SQ TID [facility] Last Admin: 12/09/18 13:17 Dose: 5,000 unit Potassium Chloride/Sodium Chloride (Ns+20 Meq Kcl -) 20 meq in 1,000 mls @ 100 mls/hr IV ASDIR MURTAZA Last Admin: 12/09/18 12:25 Dose: 100 mls/hr Ceftriaxone Sodium 1 gm/ (Dextrose) 50 mls @ 100 mls/hr IVPB DAILY [facility]; Protocol Last Admin: 12/09/18 13:12 Dose: 100 mls/hr Levothyroxine Sodium (Synthroid Injection -) 75 mcg IVPUSH DAILY [facility] Last Admin: 12/09/18 11:37 Dose: 75 mcg Nystatin (Mycostatin Cream -) 1 applic TP BID [facility] Last Admin: 12/09/18 16:14 Dose: 1 applic - Objective Vital Signs: Vital Signs Temperature 98.7 F 12/09/18 18:00 Pulse Rate 102 H 12/09/18 18:00 Respiratory Rate 20 12/09/18 18:00 Blood Pressure 147/73 12/09/18 18:00 O2 Sat by Pulse Oximetry (%) 97 12/09/18 09:00 Constitutional: Yes: No Distress Cardiovascular: Yes: Regular Rate and Rhythm, S1, S2 Respiratory: Yes: CTA Bilaterally Gastrointestinal: Yes: Normal Bowel Sounds, Soft Extremities: Yes: Other (DECREASED ERYTHEMA LE B/L) Edema: No Labs: CBC, BMP 12/09/18 06:59 12/09/18 06:59 INR, PTT INR 0.93 (0.83-1.09) 12/07/18 20:39 Assessment/Plan UTI R/O SEPSIS SECONDARY TO UTI ? CELLULITIS LE TOXIC METABOLIC ENCEPHALOPATHY AWAIT C/S CONTINUE CEFTRIAXONE
[2018-12-10] MEDS: SODIUM CHLORIDE 0.9%/KCL 20 MEQ/1,000 ML INFUS.BAG IV SCH ×2 (03:34→09:32)
[2018-12-10] MEDS: HEPARIN NA (PORCINE) 5,000 UNITS/ML 1ML VIAL SQ SCH ×3 (06:53→21:28)
--- NOTE | 2018-12-10 08:02 | PN ---
Progress Note, Physician Chief Complaint: patient is improving she is more alert ad oriented today to herself, she still does not know exactly where she is, she stated she i a bit hungry but her mouth is dry beside that she has no complaints - Current Medication List Current Medications: Active Medications Acetaminophen (Ofirmev Injection -) 1,000 mg IVPB Q6H PRN PRN Reason: FEVER Heparin Sodium (Porcine) (Heparin -) 5,000 unit SQ TID [facility] Last Admin: 12/10/18 06:53 Dose: 5,000 unit Potassium Chloride/Sodium Chloride (Ns+20 Meq Kcl -) 20 meq in 1,000 mls @ 100 mls/hr IV ASDIR [facility] Last Admin: 12/10/18 03:34 Dose: 100 mls/hr Ceftriaxone Sodium 1 gm/ (Dextrose) 50 mls @ 100 mls/hr IVPB DAILY [facility]; Protocol Last Admin: 12/09/18 13:12 Dose: 100 mls/hr Levothyroxine Sodium (Synthroid Injection -) 75 mcg IVPUSH DAILY [facility] Last Admin: 12/09/18 11:37 Dose: 75 mcg Nystatin (Mycostatin Cream -) 1 applic TP BID [facility] Last Admin: 12/09/18 21:13 Dose: 1 applic - Objective Vital Signs: Vital Signs Temperature 98.9 F 12/10/18 05:00 Pulse Rate 110 H 12/10/18 05:00 Respiratory Rate 20 12/09/18 22:00 Blood Pressure 145/81 12/10/18 05:00 O2 Sat by Pulse Oximetry (%) 97 12/09/18 21:00 Constitutional: Yes: Anxious, Cachectic, Moderate Distress, Poor Hygeine Eyes: Yes: WNL, Conjunctiva Clear HENT: Yes: WNL, Atraumatic, Normocephalic Neck: Yes: WNL, Supple, Trachea Midline Cardiovascular: Yes: WNL, Regular Rate and Rhythm, S1, S2 Respiratory: Yes: WNL, Regular, CTA Bilaterally Gastrointestinal: Yes: WNL, Normal Bowel Sounds, Soft Musculoskeletal: Yes: WNL Extremities: Yes: WNL Edema: No Peripheral Pulses WNL: No Integumentary: Yes: WNL Neurological: Yes: Alert, Oriented (to herself only, patient mental status improved today compared to yesterday) Psychiatric: Yes: Alert, Oriented, Agitated Labs: CBC, BMP 12/09/18 06:59 12/09/18 06:59 INR, PTT INR 0.93 (0.83-1.09) 12/07/18 20:39 Assessment/Plan 78 year old female non-ambulatory [place] resident with history of Hypothyroidism, sent to ED with altered mental status. CT Head - no acute intracranial findings. 1. Acute Metabolic Encephalopathy and Sepsis secondary to UTI - resolving UA positive for LE, WBCs, Bacteria Leukocytosis, Fever, tachycardia IV hydration ongoing Empirically given IV Zosyn in ED. ID consulted. NPO pending mental status change/swallow eval. B12, RPR, TSH 2. Hypothyroidism Continue Levothyroxine. 3. Wounds/Ecchymoses LEs secondary to ambulatory dysfunction/falls Wound Care and PT requested. Hypokalemia: resolving will start PO feeding for the patient DVT Px - Heparin SQ
[2018-12-10] MEDS ORDERED: cefTRIAXone SODIUM 1 GM VIAL ONE (10:47)
[2018-12-10] MEDS ORDERED: DEXTROSE 5%-WATER - 50 ML IVPB ONE (10:47)
[2018-12-10] MEDS: CEFTRIAXONE 1 GM in DEXTROSE 5%-WATER - 50 ML IVPB SCH (10:54)
[2018-12-10] MEDS: NYSTATIN 100,000 UNIT/GM TOPICAL CREAM 15 GM TUBE TP SCH ×2 (10:57→21:28)
[2018-12-10 11:23] LABS: BASO % 0.3 % (0-2.0); HEMATOCRIT 40.7 % (32.4-45.2); HEMOGLOBIN 13.6 GM/dL (10.7-15.3); LYMPH % 11.9 % (8-40); MCH 31.6 pg (25.7-33.7); MCHC 33.4 g/dl (32.0-36.0); MEAN CELL VOLUME 94.4 fl (80-96); MEAN PLT VOLUME 8.7 fl (7.5-11.1); MONO % 9.6 % (3.8-10.2); NEUT % 78.2 % (42.8-82.8); PLATELET COUNT 271 K/MM3 (134-434); RBC 4.32 M/mm3 (3.60-5.2); RDW 14.1 % (11.6-15.6); WHITE BLOOD COUNT 10.6 K/mm3 (4.0-10.0)
[2018-12-10] MEDS: LEVOTHYROXINE SODIUM 100 MCG VIAL IVPUSH SCH (11:27)
[2018-12-10 11:35] LABS: BILIRUBIN,TOTAL 0.9 mg/dL (0.2-1); CALCIUM 8.7 mg/dL (8.5-10.1); CREATININE 0.4 mg/dL (0.55-1.3); POTASSIUM 3.4 mmol/L (3.5-5.1); TOT PROT 5.8 g/dl (6.4-8.2)
[2018-12-10] MEDS: LACTATED RINGERS SOLUTION 1,000 ML/1,000 ML INFUS.BAG IV SCH ×2 (12:10→18:20)
--- NOTE | 2018-12-10 12:24 | EKG ---
Test Reason : Blood Pressure : / mmHG Vent. Rate : 116 BPM Atrial Rate : 116 BPM P-R Int : 168 ms QRS Dur : 084 ms QT Int : 348 ms P-R-T Axes : 051 -49 -11 degrees QTc Int : 483 ms SINUS TACHYCARDIA LEFT AXIS DEVIATION MINIMAL VOLTAGE CRITERIA FOR LVH, MAY BE NORMAL VARIANT INFERIOR INFARCT (CITED ON OR BEFORE 07-DEC-2018) ABNORMAL ECG WHEN COMPARED WITH ECG OF 07-DEC-2018 21:45, NONSPECIFIC T WAVE ABNORMALITY NOW EVIDENT IN INFERIOR LEADS NONSPECIFIC T WAVE ABNORMALITY, WORSE IN LATERAL LEADS Confirmed by CRISTAL LADD MD ([id number]) on 12/10/2018 12:24:31 PM Referred By: Jessi HICKMAN Confirmed By:CRISTAL LADD MD
[2018-12-10] MEDS ORDERED: POTASSIUM CHLORIDE TABS 20 MEQ TABLET.ER (FP) PO ONE (13:43)
[2018-12-10 15:26] VITALS: BMI 20.5
[2018-12-11] MEDS: HEPARIN NA (PORCINE) 5,000 UNITS/ML 1ML VIAL SQ SCH ×3 (06:16→23:06)
[2018-12-11 06:25] LABS: BASO % 0.3 % (0-2.0); EOS % 0.4 % (0-4.5); HEMATOCRIT 38.7 % (32.4-45.2); LYMPH % 17.5 % (8-40); MCH 31.7 pg (25.7-33.7); MCHC 33.6 g/dl (32.0-36.0); MEAN CELL VOLUME 94.4 fl (80-96); MEAN PLT VOLUME 8.9 fl (7.5-11.1); MONO % 14.5 % (3.8-10.2); NEUT % 67.3 % (42.8-82.8); PLATELET COUNT 264 K/MM3 (134-434); RDW 14.1 % (11.6-15.6); WHITE BLOOD COUNT 9.3 K/mm3 (4.0-10.0)
[2018-12-11 06:50] LABS: ALBUMIN 2.9 g/dl (3.4-5.0); BILIRUBIN,TOTAL 1.1 mg/dL (0.2-1); CREATININE 0.5 mg/dL (0.55-1.3); POTASSIUM 3.2 mmol/L (3.5-5.1); TOT PROT 5.6 g/dl (6.4-8.2)
--- NOTE | 2018-12-11 08:21 | PN ---
Teaching Attending Note Name of Resident: Vinny Lamas ATTENDING PHYSICIAN STATEMENT I saw and evaluated the patient. I reviewed the resident's note and discussed the case with the resident. I agree with the resident's findings and plan as documented. SUBJECTIVE: Afebrile alert OBJECTIVE: Vital Signs Temperature 98.8 F 12/11/18 05:00 Pulse Rate 120 H 12/11/18 05:00 Respiratory Rate 22 H 12/11/18 05:00 Blood Pressure 145/77 12/11/18 05:00 O2 Sat by Pulse Oximetry (%) 97 12/10/18 21:00 General: Elderly F comfortable not in distress HEENT:Mm moist, no anemia, PERRLA EOMI NECK:No JVD No Bruit CHEST: CTA B/L CVS: S1S2 IR no m/g/r ABD: No distention, non tender BS + EXT: No edema feet, no calf tenderness UNSTACKER:Aert non focal CBC, BMP 12/11/18 05:15 12/11/18 05:15 Active Medications Acetaminophen (Ofirmev Injection -) 1,000 mg IVPB Q6H PRN PRN Reason: FEVER Heparin Sodium (Porcine) (Heparin -) 5,000 unit SQ TID [facility] Last Admin: 12/11/18 06:16 Dose: 5,000 unit Ceftriaxone Sodium 1 gm/ (Dextrose) 50 mls @ 100 mls/hr IVPB DAILY [facility]; Protocol Last Admin: 12/11/18 09:53 Dose: 100 mls/hr Potassium Chloride/Dextrose/Sod Cl (D5-1/2ns+20 Meq Kcl -) 20 meq in 1,000 mls @ 75 mls/hr IV ASDIR [facility] Last Admin: 12/11/18 12:08 Dose: 75 mls/hr Levothyroxine Sodium (Synthroid Injection -) 75 mcg IVPUSH DAILY [facility] Last Admin: 12/11/18 09:53 Dose: 75 mcg Nystatin (Mycostatin Cream -) 1 applic TP BID [facility] Last Admin: 12/11/18 09:56 Dose: 1 applic ASSESSMENT AND PLAN:78 year old female non-ambulatory [place] resident with history of Hypothyroidism, sent to ED with altered mental status. In the ED she was agitated requiring Ativan and Ketamine. UA + improved with abx Problem List - Problems (1) Acute metabolic encephalopathy Assessment/Plan: Due to UTI and Dehydration improving will switch to PO abx once we get sensitivity Code(s): G93.41 - METABOLIC ENCEPHALOPATHY (2) UTI (urinary tract infection) Assessment/Plan: Cont Ceftriaxone switch to Po once we get sensitivity Code(s): N39.0 - URINARY TRACT INFECTION, SITE NOT SPECIFIED Qualifiers: Urinary tract infection type: site unspecified Hematuria presence: without hematuria Qualified Code(s): N39.0 - Urinary tract infection, site not specified (3) Hypothyroid Assessment/Plan: Cont Levothyroxine Code(s): E03.9 - HYPOTHYROIDISM, UNSPECIFIED (4) Hypokalemia Assessment/Plan: Replete F/U BMP and Mag level Code(s): E87.6 - HYPOKALEMIA
[2018-12-11] MEDS: KCL 10 MEQ IVPB 10 MEQ/100 ML INFUS.BAG IVPB SCH ×3 (08:35→10:43)
[2018-12-11] MEDS ORDERED: PT OWN MED DRAWER 7, Y5N ONE (09:15)
[2018-12-11] MEDS ORDERED: cefTRIAXone SODIUM 1 GM VIAL ONE (09:16)
[2018-12-11] MEDS ORDERED: DEXTROSE 5%-WATER - 50 ML IVPB ONE (09:16)
[2018-12-11] MEDS: LEVOTHYROXINE SODIUM 100 MCG VIAL IVPUSH SCH (09:53)
[2018-12-11] MEDS: CEFTRIAXONE 1 GM in DEXTROSE 5%-WATER - 50 ML IVPB SCH (09:53)
[2018-12-11] MEDS: NYSTATIN 100,000 UNIT/GM TOPICAL CREAM 15 GM TUBE TP SCH ×2 (09:56→23:08)
[2018-12-11] MEDS: D5-1/2NS+20 MEQ KCL - 20 MEQ/1,000 ML INFUS.BAG IV SCH (12:08)
--- NOTE | 2018-12-11 12:23 | PN ---
Progress Note, CLAIMS ADMINISTRATOR - Note Progress Note: Initiated on puree/thin liquid on 12/10. Selected Entries 12/10/18 12/10/18 12/10/18 01:00 05:00 09:30 Breakfast Diet Tolerated Lunch Supper Temperature 98.8 F 98.9 F 99.2 F 12/10/18 12/10/18 12/10/18 13:06 13:07 18:00 Breakfast Diet Tolerated Lunch 75% Supper Temperature 98.4 F 99.1 F 12/10/18 12/10/18 12/11/18 18:15 19:00 05:00 Breakfast Diet Tolerated Lunch Supper 75% Temperature 98.5 F 98.8 F 12/11/18 12/11/18 09:00 11:47 Breakfast 50% Diet Tolerated Fair Lunch Supper Temperature 98.2 F Laboratory Tests 12/08/18 12/09/18 12/11/18 05:20 06:59 05:15 WBC 15.1 H 14.7 H 9.3 Per nursing, cough response on thin liquid yesterday. Pt receiving puree/nectar with overtly good tolerance. Confused/disoriented but verbal.Ataxic Dysarthria with fair intelligibility. Baseline speech production? h/o CP. At [place], pt was on reg diet/thin liquid which pt can not tolerate at this time.Aspiration on thin liquid suspected. Delayed swallow onset with galen/pharyngeal dyscoordination. Determine from pt's if speech performance has changed. Dys puree/nectar thick liquid MBS, when appropriate, to r/o aspiration/upgrade diet if possible..
--- NOTE | 2018-12-11 15:07 | PN ---
Physical Exam: SUBJECTIVE: Patient seen and examined. Pt. more alert and responsive today. Pt. states she has an itchy groin. Pt. states she is scared of the custodial. Pt. states she is seeing "water coming from the pipes." OBJECTIVE: Vital Signs Period Temp Pulse Resp BP Sys/Zhao Pulse Ox Last 24 Hr 98.0 F-99.1 F 107-120 20-22 134-145/77-87 97-97 GENERAL: The patient is in no acute distress, baseline spasticity, alert and oriented to name only in AM HEAD: Normal with no signs of trauma. EYES: sclera anicteric, conjunctiva clear. ENT: Ears normal, nares patent, oropharynx clear without exudates, dry mucous membranes. LUNGS: Coarse breath sounds equal, clear to auscultation bilaterally, no wheezes , no crackles, no accessory muscle use. HEART: Regular rate and rhythm, S1, S2 without murmur ABDOMEN: Soft, mild suprapubic, LLQ and RLQ tenderness to palpation, nondistended, normoactive bowel sounds EXTREMITIES: 2+ dorsal pedal pulses, warm, well-perfused, no edema, b/l anterior arevalo wounds on the arevalo- healing. NEUROLOGICAL: Normal speech, gait not observed. PSYCH: Normal mood, normal affect. SKIN: Warm, dry Laboratory Results - last 24 hr 12/10/18 12/10/18 12/11/18 16:55 21:25 05:15 WBC 9.3 RBC 4.10 Hgb 13.0 Hct 38.7 MCV 94.4 MCH 31.7 MCHC 33.6 RDW 14.1 Plt Count 264 MPV 8.9 Absolute Neuts (auto) 6.3 Neutrophils % 67.3 Lymphocytes % 17.5 D Monocytes % 14.5 H Eosinophils % 0.4 D Basophils % 0.3 Nucleated RBC % 0 Sodium Potassium Chloride Carbon Dioxide Anion Gap BUN Creatinine Est GFR (CKD-EPI)AfAm Est GFR (CKD-EPI)NonAf POC Glucometer 117 143 Random Glucose Calcium Total Bilirubin AST ALT Alkaline Phosphatase Total Protein Albumin 12/11/18 12/11/18 05:15 05:28 WBC RBC Hgb Hct MCV MCH MCHC RDW Plt Count MPV Absolute Neuts (auto) Neutrophils % Lymphocytes % Monocytes % Eosinophils % Basophils % Nucleated RBC % Sodium 146 H Potassium 3.2 L Chloride 113 H Carbon Dioxide 25 Anion Gap 7 L BUN 15 Creatinine 0.5 L Est GFR (CKD-EPI)AfAm 105.94 Est GFR (CKD-EPI)NonAf 91.41 POC Glucometer 106 Random Glucose 116 H Calcium 9.0 Total Bilirubin 1.1 H AST 74 H ALT 74 H Alkaline Phosphatase 106 Total Protein 5.6 L Albumin 2.9 L Active Medications Home Medications Medication Instructions Recorded Baclofen [Lioresal -] 10 mg PO TID 12/08/18 Dextran 70/Hypromellose/Pf 1 each OP BID 12/08/18 [Artificial Tears Drops] Docusate Sodium [Colace] 200 mg PO HS 12/08/18 Duloxetine HCl 60 mg PO DAILY 12/08/18 Gabapentin [Neurontin] 300 mg PO Q8H 12/08/18 Levothyroxine [Synthroid -] 75 mcg PO DAILY 12/08/18 Oxycodone HCl/Acetaminophen 1 tab PO PRN PRN 12/08/18 [Percocet 5-325 mg Tablet] Sennosides [Senna] 8.6 mg PO DAILY 12/08/18 Current Medications Acetaminophen (Ofirmev Injection -) 1,000 mg IVPB Q6H PRN PRN Reason: FEVER Heparin Sodium (Porcine) (Heparin -) 5,000 unit SQ TID [facility] Last Admin: 12/11/18 14:10 Dose: 5,000 unit Ceftriaxone Sodium 1 gm/ (Dextrose) 50 mls @ 100 mls/hr IVPB DAILY [facility]; Protocol Last Admin: 12/11/18 09:53 Dose: 100 mls/hr Potassium Chloride/Dextrose/Sod Cl (D5-1/2ns+20 Meq Kcl -) 20 meq in 1,000 mls @ 75 mls/hr IV ASDIR [facility] Last Admin: 12/11/18 12:08 Dose: 75 mls/hr Levothyroxine Sodium (Synthroid Injection -) 75 mcg IVPUSH DAILY [facility] Last Admin: 12/11/18 09:53 Dose: 75 mcg Nystatin (Mycostatin Cream -) 1 applic TP BID [facility] Last Admin: 12/11/18 09:56 Dose: 1 applic ASSESSMENT/PLAN: 78 yo F with a known history of hypothyroidism, presented from [facility] because of altered mental status. #Acute metabolic encephalopathy likely 2/2 UTI-resolving U/A +, UCx. positive for Alpha-hemolytic strep Tachy, febrile 100.6 on admission Blood cultures, urine cultures pending Head CT: unremarkable- moderate volume loss, dilated ventricles CXR: Unremarkable c/w ceftriaxone--> will likely switch to Augmentin or PO meds pending ID recommendations d/c Zosyn ID consult appreciated (Dr. Gann) IVF Speech/swallow consult appreciated Fall precautions tylenol prn for fever Pt. was straight catherized for 695ccs retained urine. Low threshold to bladder scan and catheterized. #Transaminitis-resolving Likey d/t hypotension, will c/w to trend as Pt. is on Ceftriaxone Pt. unable to sit still for RUQ US. AST: 101-->74 ALT: 72-->74 ALP: 106 #Hypothyroidism Hold PO Synthroid c/w 75mcg IV #FEN started D5-1/2NS @ 75ml /hour monitor electrolytes and replete as needed, repletion of potassium in IVF and K- riders Dysphagia Puree #Dvt Ppx. Hep SQ Visit type - Emergency Visit Emergency Visit: Yes ED Registration Date: 12/08/18 Care time: The patient presented to the Emergency Department on the above date and was hospitalized for further evaluation of their emergent condition. - New Patient This patient is new to me today: No - Critical Care Critical Care patient: No - Discharge Referral Referred to [facility] Med P.C.: No
[2018-12-12] MEDS: D5-1/2NS+20 MEQ KCL - 20 MEQ/1,000 ML INFUS.BAG IV SCH ×2 (01:02→13:59)
[2018-12-12] MEDS: LACTATED RINGERS SOLUTION 1,000 ML/1,000 ML INFUS.BAG IV SCH (03:46)
[2018-12-12 06:35] LABS: HEMATOCRIT 37.1 % (32.4-45.2); HEMOGLOBIN 12.4 GM/dL (10.7-15.3); MCH 31.4 pg (25.7-33.7); MCHC 33.5 g/dl (32.0-36.0); MEAN CELL VOLUME 93.6 fl (80-96); MEAN PLT VOLUME 8.7 fl (7.5-11.1); PLATELET COUNT 286 K/MM3 (134-434); RBC 3.96 M/mm3 (3.60-5.2); RDW 14.1 % (11.6-15.6); WHITE BLOOD COUNT 8.7 K/mm3 (4.0-10.0)
[2018-12-12] MEDS: HEPARIN NA (PORCINE) 5,000 UNITS/ML 1ML VIAL SQ SCH ×3 (06:55→21:08)
[2018-12-12 06:58] LABS: CALCIUM 8.6 mg/dL (8.5-10.1); CREATININE 0.3 mg/dL (0.55-1.3); MAGNESIUM 1.7 mg/dL (1.8-2.4); PHOSPHOROUS 2.5 mg/dL (2.5-4.9); POTASSIUM 3.6 mmol/L (3.5-5.1)
--- NOTE | 2018-12-12 08:00 | PN ---
Teaching Attending Note Name of Resident: Vinny Lamas ATTENDING PHYSICIAN STATEMENT I saw and evaluated the patient. I reviewed the resident's note and discussed the case with the resident. I agree with the resident's findings and plan as documented. SUBJECTIVE: Remained afebrile, more alert OBJECTIVE: Vital Signs Temperature 99.1 F 12/12/18 06:00 Pulse Rate 109 H 12/12/18 06:00 Respiratory Rate 20 12/12/18 06:00 Blood Pressure 139/76 12/12/18 06:00 O2 Sat by Pulse Oximetry (%) 97 12/11/18 21:00 General: Elderly F comfortable not in distress HEENT:Mm moist, no anemia, PERRLA EOMI NECK:No JVD No Bruit CHEST: CTA B/L CVS: S1S2 IR no m/g/r ABD: No distention, non tender BS + EXT: No edema feet, no calf tenderness FRONT TENDER:Aert non focal CBC, BMP 12/12/18 06:00 12/12/18 06:00 Active Medications Acetaminophen (Ofirmev Injection -) 1,000 mg IVPB Q6H PRN PRN Reason: FEVER Heparin Sodium (Porcine) (Heparin -) 5,000 unit SQ TID [facility] Last Admin: 12/12/18 06:55 Dose: 5,000 unit Ceftriaxone Sodium 1 gm/ (Dextrose) 50 mls @ 100 mls/hr IVPB DAILY [facility]; Protocol Last Admin: 12/11/18 09:53 Dose: 100 mls/hr Potassium Chloride/Dextrose/Sod Cl (D5-1/2ns+20 Meq Kcl -) 20 meq in 1,000 mls @ 75 mls/hr IV ASDIR [facility] Last Admin: 12/12/18 01:02 Dose: 75 mls/hr Levothyroxine Sodium (Synthroid Injection -) 75 mcg IVPUSH DAILY [facility] Last Admin: 12/11/18 09:53 Dose: 75 mcg Magnesium Sulfate (Magnesium Sulfate) 1 gm IVPB ONCE ONE Stop: 12/12/18 07:30 Nystatin (Mycostatin Cream -) 1 applic TP BID [facility] Last Admin: 12/11/18 23:08 Dose: 1 applic ASSESSMENT AND PLAN:78 year old female non-ambulatory [place] resident with history of Hypothyroidism, sent to ED with altered mental status. In the ED she was agitated requiring Ativan and Ketamine. UA + improved with abx, will switch to Po Ceftin. Problem List - Problems (1) Acute metabolic encephalopathy Assessment/Plan: Due to UTI and Dehydration improving will switch to PO abx Ceftin BID Code(s): G93.41 - METABOLIC ENCEPHALOPATHY (2) UTI (urinary tract infection) Assessment/Plan: Recived Ceftriaxone for 5 days switch to Po Ceftin pending sensitivity Code(s): N39.0 - URINARY TRACT INFECTION, SITE NOT SPECIFIED Qualifiers: Urinary tract infection type: site unspecified Hematuria presence: without hematuria Qualified Code(s): N39.0 - Urinary tract infection, site not specified (3) Hypothyroid Assessment/Plan: Cont Levothyroxine Code(s): E03.9 - HYPOTHYROIDISM, UNSPECIFIED (4) Restless Assessment/Plan: Patient was on Oxycodone probably withdrawing opites restaart home dose Code(s): R45.1 - RESTLESSNESS AND AGITATION
[2018-12-12] MEDS ORDERED: DEXTROSE 5%-WATER - 50 ML IVPB ONE (08:59)
[2018-12-12] MEDS ORDERED: cefTRIAXone SODIUM 1 GM VIAL ONE (08:59)
[2018-12-12] MEDS ORDERED: MAGNESIUM SULF 50% (8.12 MEQ/2 ML-1 GM VIAL) IVPB ONE (09:00)
[2018-12-12] MEDS: CEFTRIAXONE 1 GM in DEXTROSE 5%-WATER - 50 ML IVPB SCH (09:14)
[2018-12-12] MEDS: NYSTATIN 100,000 UNIT/GM TOPICAL CREAM 15 GM TUBE TP SCH ×2 (10:09→21:08)
[2018-12-12] MEDS ORDERED: PT OWN MED DRAWER 7, Y5N ONE (10:15)
[2018-12-12] MEDS: LEVOTHYROXINE SODIUM 100 MCG VIAL IVPUSH SCH (10:19)
--- NOTE | 2018-12-12 11:58 | PN ---
Progress Note, SE[employer]ER E[employer]IC BAND - Note Progress Note: Selected Entries 12/11/18 12/11/18 12/11/18 05:00 09:00 11:47 Breakfast 50% Diet Tolerated Fair Lunch Supper Temperature 98.8 F 98.2 F 12/11/18 12/11/18 12/11/18 14:53 18:00 18:21 Breakfast Diet Tolerated Fair Poor Lunch 50% Supper 25% Temperature 98.0 F 98.7 F 12/11/18 12/12/18 12/12/18 21:00 06:00 08:44 Breakfast Diet Tolerated Lunch Supper Temperature 98.8 F 99.1 F 98.1 F 12/12/18 10:26 Breakfast 50% Diet Tolerated Fair Lunch Supper Temperature Laboratory Tests 12/12/18 06:00 WBC 8.7 Pt with some cough/congestion. Overtly tolerating puree/nectar liquids but with responsive cough with thin liquid. Per chart, pt was on reg diet/thin liquid at [place]. Speech is dysarthric- LT from (h/o Cerebral Palsy) vs new symptom? Suggest MBS to r/o aspiration and determine appropriate diet.
--- NOTE | 2018-12-12 12:59 | PN ---
Progress Note (short form) - Note Progress Note: Surgery Asked to evaluate patient with b/l Leg wounds. Patient seen and examined at bedside. She is speaking incoherently and moving around in the bed. Vital Signs Temp 98.1 F 12/12/18 08:44 Pulse 103 H 12/12/18 08:44 Resp 20 12/12/18 08:45 BP 131/93 12/12/18 08:44 Pulse Ox 97 12/12/18 08:45 Intake & Output 12/11/18 12/12/18 12/12/18 23:59 11:59 23:59 Intake Total 1150 120 Balance 1150 120 Intake: IV 750 D5-1/2NS+20 MEQ KCL - 20 300 meq In 1,000 ml @ 75 mls/ hr IV ASDIR [facility] Rx#: [id number] LACTATED RINGERS SOLUTION 450 1,000 ml In 1,000 ml @ 150 mls/hr IV ASDIR [facility] Rx#:[id number] Oral 400 120 Other: Voiding Method Incontinent Incontinent # Unmeasured Voids Void 1 1 Bowel Movement Yes Yes # Bowel Movements 1 1 CBC, BMP 12/12/18 06:00 12/12/18 06:00 PE: Pleasantly Demented in NAD Unlabored resp on RA Right LE Two small well healed, scabbed over wounds over anterior arevalo @ 2cmx0.5cm and 5x1cm, Surrounding tissue intact with non tracking erythema or edema, no evidence of d/c or collection, compartments soft, supple and non- tender, foot warm and well perfused with +signal on doppler over DP and PT. Lef LE with 2 small well healed , scabbed over wounds @1x1 and 0.5x0.5cm over anterior arevalo @ 2cmx0.5cm and 5x1cm, Surrounding tissue intact with non tracking erythema or edema, no evidence of d/c or collection, compartments soft , supple and non-tender, foot warm and well perfused with +signal on doppler over DP and PT. Patient moving all extremities. Problem List - Problems (1) Leg wound, right Assessment/Plan: 78yo woman with b/l well healed leg wounds with + doppler signal and no indication for surgical intervention. 1) Bacitracin to b/l wounds daily, keep clean 2) Kurlex and 4x4 over scabs to protect and avoid sheering forces across skin 3) Offload pressure sensitive areas 4) re-consult vascular PRN evaluation and plan discussed with Dr Lui Code(s): S81.801A - UNSPECIFIED OPEN WOUND, RIGHT LOWER LEG, INITIAL ENCOUNTER
[2018-12-12] MEDS: DULoxetine HCL 30 MG CAPSULE.DR (FP) PO SCH (13:59)
[2018-12-12] MEDS: GABAPENTIN 300 MG CAPSULE (FP) PO SCH ×2 (13:59→21:08)
[2018-12-12] MEDS ORDERED: ACETAMINOPHEN 325 MG TABLET (FP) PO PRN (14:05)
[2018-12-12] MEDS: BACITRACIN 15 GM TUBE TOPICAL OINTMENT TP SCH (14:08)
[2018-12-12] MEDS: BACLOFEN 10 MG TABLET (FP) PO SCH ×2 (14:09→21:08)
--- NOTE | 2018-12-12 15:30 | PN ---
Physical Exam: SUBJECTIVE: Patient seen and examined. Pt. was restless overnight and slept after a few hours. Pt. was confused and yelling at [place]. Pt. is voiding and having BMs. Pt. has a dry cough. OBJECTIVE: Vital Signs Period Temp Pulse Resp BP Sys/Zhao Pulse Ox Last 24 Hr 98.1 F-99.3 F 101-112 19-22 129-139/76-93 97-97 GENERAL: The patient is in no acute distress, baseline spasticity, alert and oriented to name only in AM HEAD: Normal with no signs of trauma. EYES: sclera anicteric, conjunctiva clear. ENT: Ears normal, nares patent, oropharynx clear without exudates, dry mucous membranes. LUNGS: Coarse breath sounds equal, clear to auscultation bilaterally, no wheezes , no crackles, no accessory muscle use. HEART: Regular rate and rhythm, S1, S2 without murmur ABDOMEN: Soft, mild LLQ tenderness to palpation, nondistended, normoactive bowel sounds EXTREMITIES: 2+ dorsal pedal pulses, warm, well-perfused, no edema, b/l anterior arevalo wounds on the arevalo- healing. NEUROLOGICAL: Normal speech, gait not observed. PSYCH: Normal mood, normal affect. SKIN: Warm, dry Laboratory Results - last 24 hr 12/12/18 12/12/18 06:00 06:00 WBC 8.7 RBC 3.96 Hgb 12.4 Hct 37.1 MCV 93.6 MCH 31.4 MCHC 33.5 RDW 14.1 Plt Count 286 MPV 8.7 Sodium 138 Potassium 3.6 Chloride 106 Carbon Dioxide 26 Anion Gap 6 L BUN 7 Creatinine 0.3 L Est GFR (CKD-EPI)AfAm 125.33 Est GFR (CKD-EPI)NonAf 108.14 Random Glucose 122 H Calcium 8.6 Phosphorus 2.5 Magnesium 1.7 L TSH 0.93 Active Medications Home Medications Medication Instructions Recorded Baclofen [Lioresal -] 10 mg PO TID 12/08/18 Dextran 70/Hypromellose/Pf 1 each OP BID 12/08/18 [Artificial Tears Drops] Docusate Sodium [Colace] 200 mg PO HS 12/08/18 Duloxetine HCl 60 mg PO DAILY 12/08/18 Gabapentin [Neurontin] 300 mg PO Q8H 12/08/18 Levothyroxine [Synthroid -] 75 mcg PO DAILY 12/08/18 Oxycodone HCl/Acetaminophen 1 tab PO PRN PRN 12/08/18 [Percocet 5-325 mg Tablet] Sennosides [Senna] 8.6 mg PO DAILY 12/08/18 Current Medications Acetaminophen (Ofirmev Injection -) 1,000 mg IVPB Q6H PRN PRN Reason: FEVER Acetaminophen (Tylenol -) 325 mg PO Q8H PRN PRN Reason: PAIN LEVEL 6-10 Bacitracin (Bacitracin -) 1 applic TP DAILY [facility]S [facility]CLUDE 234 BEDS AT THE [facility] Last Admin: 12/12/18 14:08 Dose: 1 applic Baclofen (Lioresal -) 10 mg PO TID [facility] Docusate Sodium (Colace -) 200 mg PO HS [facility] Duloxetine HCl (Cymbalta -) 60 mg PO DAILY COUNTS INCLUDE 234 BEDS AT THE [facility] Last Admin: 12/12/18 13:59 Dose: 60 mg Gabapentin (Neurontin -) 300 mg PO TID [facility]S INCLUDE 234 BEDS AT THE [facility] Last Admin: 12/12/18 13:59 Dose: 300 mg Heparin Sodium (Porcine) (Heparin -) 5,000 unit SQ TID [facility]S INCLUDE 234 BEDS AT THE [facility] Last Admin: 12/12/18 13:58 Dose: 5,000 unit Ceftriaxone Sodium 1 gm/ (Dextrose) 50 mls @ 100 mls/hr IVPB DAILY [facility]S INCLUDE 234 BEDS AT THE [facility]; Protocol Last Admin: 12/12/18 09:14 Dose: 100 mls/hr Potassium Chloride/Dextrose/Sod Cl (D5-1/2ns+20 Meq Kcl -) 20 meq in 1,000 mls @ 75 mls/hr IV ASDIR COUNTS INCLUDE 234 BEDS AT THE [facility] Last Admin: 12/12/18 13:59 Dose: 75 mls/hr Levothyroxine Sodium (Synthroid -) 75 mcg PO DAILY@0700 COUNTS INCLUDE 234 BEDS AT THE [facility] Non-Formulary Medication (Dextran 70/Hypromellose/Pf [Artificial Tears Drops]) 1 each OP BID [facility] Nystatin (Mycostatin Cream -) 1 applic TP BID [facility]S INCLUDE 234 BEDS AT THE [facility] Last Admin: 12/12/18 10:09 Dose: 1 applic Oxycodone HCl (Roxicodone -) 5 mg PO Q8H PRN PRN Reason: PAIN LEVEL 6-10 ASSESSMENT/PLAN: 78 yo F with a known history of hypothyroidism, presented from [facility] because of altered mental status. #Acute metabolic encephalopathy likely 2/2 UTI-resolving U/A +, UCx. positive for Strep. Morbillorum Tachy, febrile 100.6 on admission Blood cultures, urine cultures pending Head CT: unremarkable- moderate volume loss, dilated ventricles CXR: Unremarkable Ceftriaxone for 5 days--> will switch to Ceftin for 2 more days for a total of 7 days d/c Zosyn ID consult appreciated (Dr. Gann) IVF Speech/swallow consult appreciated Fall precautions tylenol prn for fever Pt. was straight catherized for 695ccs retained urine. Low threshold to bladder scan and catheterized. f/u Psych recommendation for akathisia given history of Duloxetine #Transaminitis-resolving Likey d/t hypotension, will c/w to trend as Pt. is on Ceftriaxone Pt. unable to sit still for RUQ US. AST: 101-->74 ALT: 72-->74 ALP: 106 #Hypothyroidism Hold PO Synthroid c/w 75mcg IV #Functional Quadriplegia c/w Q2H position changes c/w PT c/w preventive skin care c/w feeding #FEN started D5-1/2NS @ 75ml /hour monitor electrolytes and replete as needed Dysphagia Puree #Dvt Ppx. Hep SQ TID Visit type - Emergency Visit Emergency Visit: Yes ED Registration Date: 12/08/18 Care time: The patient presented to the Emergency Department on the above date and was hospitalized for further evaluation of their emergent condition. - New Patient This patient is new to me today: No - Critical Care Critical Care patient: No - Discharge Referral Referred to [facility] Med P.C.: No
--- NOTE | 2018-12-12 16:40 | PN ---
Progress Note, Physician History of Present Illness: LESS AGITATED TEMPS DOWN AFEBRILE WBC NL BC (-) URINE C/S STREP SP - Current Medication List Current Medications: Active Medications Acetaminophen (Tylenol -) 325 mg PO Q8H PRN PRN Reason: PAIN LEVEL 6-10 Bacitracin (Bacitracin -) 1 applic TP DAILY [facility] Last Admin: 12/12/18 14:08 Dose: 1 applic Baclofen (Lioresal -) 10 mg PO TID [facility] Last Admin: 12/12/18 14:09 Dose: 10 mg Cefuroxime Axetil (Ceftin Oral Suspension -) 250 mg PO BID [facility] Docusate Sodium (Colace -) 200 mg PO HS [facility] Duloxetine HCl (Cymbalta -) 60 mg PO DAILY [facility] Last Admin: 12/12/18 13:59 Dose: 60 mg Gabapentin (Neurontin -) 300 mg PO TID [facility] Last Admin: 12/12/18 13:59 Dose: 300 mg Heparin Sodium (Porcine) (Heparin -) 5,000 unit SQ TID [facility] Last Admin: 12/12/18 13:58 Dose: 5,000 unit Potassium Chloride/Dextrose/Sod Cl (D5-1/2ns+20 Meq Kcl -) 20 meq in 1,000 mls @ 75 mls/hr IV ASDIR [facility] Last Admin: 12/12/18 13:59 Dose: 75 mls/hr Levothyroxine Sodium (Synthroid -) 75 mcg PO DAILY@0700 [facility] Non-Formulary Medication (Dextran 70/Hypromellose/Pf [Artificial Tears Drops]) 1 each OP BID [facility] Nystatin (Mycostatin Cream -) 1 applic TP BID [facility] Last Admin: 12/12/18 10:09 Dose: 1 applic Oxycodone HCl (Roxicodone -) 5 mg PO Q8H PRN PRN Reason: PAIN LEVEL 6-10 - Objective Vital Signs: Vital Signs Temperature 99.3 F 12/12/18 14:32 Pulse Rate 112 H 12/12/18 14:32 Respiratory Rate 19 12/12/18 14:32 Blood Pressure 135/84 12/12/18 14:32 O2 Sat by Pulse Oximetry (%) 97 12/12/18 08:45 Constitutional: Yes: No Distress Eyes: Yes: Conjunctiva Clear Cardiovascular: Yes: Regular Rate and Rhythm, S1, S2 Respiratory: Yes: Diminished Gastrointestinal: Yes: Normal Bowel Sounds, Soft. No: Tenderness Extremities: Yes: Other (+ ABRASIONS, SHINS BILATERALLY) Edema: No Labs: CBC, BMP 12/12/18 06:00 12/12/18 06:00 INR, PTT INR 0.93 (0.83-1.09) 12/07/18 20:39 Assessment/Plan UTI R/O SEPSIS SECONDARY TO UTI TOXIC METABOLIC ENCEPHALOPATHY DISCONTINUE CEFTRIAXONE CEFTIN BID X 2DAYS
[2018-12-12] MEDS: CEFUROXIME AXETIL 250 MG TABLET PO SCH (21:08)
[2018-12-12] MEDS: DOCUSATE SODIUM 100 MG CAPSULE (FP) PO SCH (21:08)
[2018-12-12] MEDS ORDERED: PATIENT'S OWN MEDICATION (NON-FORMULARY) (Dextran 70/Hypromellose/Pf [Artificial Tears Dro OP SCH (22:00)
[2018-12-13] MEDS: D5-1/2NS+20 MEQ KCL - 20 MEQ/1,000 ML INFUS.BAG IV SCH (06:17)
[2018-12-13] MEDS: GABAPENTIN 300 MG CAPSULE (FP) PO SCH ×3 (06:18→22:13)
[2018-12-13] MEDS: BACLOFEN 10 MG TABLET (FP) PO SCH ×3 (06:18→22:13)
[2018-12-13] MEDS: LEVOTHYROXINE NA 75 MCG TABLET (FP) PO SCH (06:19)
[2018-12-13] MEDS: HEPARIN NA (PORCINE) 5,000 UNITS/ML 1ML VIAL SQ SCH ×3 (06:19→22:13)
[2018-12-13 07:12] LABS: BASO % 0.4 % (0-2.0); EOS % 6.2 % (0-4.5); HEMATOCRIT 37.4 % (32.4-45.2); HEMOGLOBIN 12.4 GM/dL (10.7-15.3); LYMPH % 22.6 % (8-40); MCH 31.3 pg (25.7-33.7); MCHC 33.3 g/dl (32.0-36.0); MEAN CELL VOLUME 93.9 fl (80-96); MEAN PLT VOLUME 9.1 fl (7.5-11.1); MONO % 13.2 % (3.8-10.2); NEUT % 57.6 % (42.8-82.8); PLATELET COUNT 302 K/MM3 (134-434); RBC 3.98 M/mm3 (3.60-5.2); RDW 14.1 % (11.6-15.6); WHITE BLOOD COUNT 8.9 K/mm3 (4.0-10.0)
[2018-12-13 08:00] LABS: ALBUMIN 2.4 g/dl (3.4-5.0); BILIRUBIN,TOTAL 0.6 mg/dL (0.2-1); CALCIUM 8.8 mg/dL (8.5-10.1); CREATININE 0.3 mg/dL (0.55-1.3); MAGNESIUM 2.3 mg/dL (1.8-2.4); PHOSPHOROUS 3.5 mg/dL (2.5-4.9); POTASSIUM 4.1 mmol/L (3.5-5.1); TOT PROT 5.2 g/dl (6.4-8.2)
[2018-12-13] MEDS: DULoxetine HCL 30 MG CAPSULE.DR (FP) PO SCH (11:47)
[2018-12-13] MEDS: CEFUROXIME AXETIL 250 MG TABLET PO SCH (11:48)
--- NOTE | 2018-12-13 12:08 | PN ---
Progress Note, AUDIO PRODUCTION ENGINEER - Note Progress Note: Selected Entries 12/12/18 12/12/18 12/13/18 10:26 18:30 02:00 Breakfast 50% Supper 100% Temperature 98.6 F 12/13/18 06:00 Breakfast Supper Temperature 98.0 F Laboratory Tests 12/13/18 06:30 WBC 8.9
--- NOTE | 2018-12-13 12:18 | CON.PSY ---
Psychiatry Consult Chief Complaint: 78 year old female a resident of a [facility], seen for Psych eval. - Previous Psychiatric Treatment Outpatient: None Inpatient: None - Previous Substance Abuse Treatment Outpatient: None Inpatient: None - Current Medications Current Medications: Active Medications Acetaminophen (Tylenol -) 325 mg PO Q8H PRN PRN Reason: PAIN LEVEL 6-10 Bacitracin (Bacitracin -) 1 applic TP DAILY [facility] Last Admin: 12/12/18 14:08 Dose: 1 applic Baclofen (Lioresal -) 10 mg PO TID [facility] Last Admin: 12/13/18 06:18 Dose: 10 mg Cefuroxime Axetil (Ceftin -) 250 mg PO BID [facility] Last Admin: 12/12/18 21:08 Dose: 250 mg Docusate Sodium (Colace -) 200 mg PO HS [facility] Last Admin: 12/12/18 21:08 Dose: 200 mg Duloxetine HCl (Cymbalta -) 60 mg PO DAILY [facility] Last Admin: 12/12/18 13:59 Dose: 60 mg Gabapentin (Neurontin -) 300 mg PO TID [facility] Last Admin: 12/13/18 06:18 Dose: 300 mg Heparin Sodium (Porcine) (Heparin -) 5,000 unit SQ TID [facility] Last Admin: 12/13/18 06:19 Dose: 5,000 unit Levothyroxine Sodium (Synthroid -) 75 mcg PO DAILY@0700 [facility] Last Admin: 12/13/18 06:19 Dose: 75 mcg Non-Formulary Medication (Dextran 70/Hypromellose/Pf [Artificial Tears Drops]) 1 each OP BID [facility] Nystatin (Mycostatin Cream -) 1 applic TP BID [facility] Last Admin: 12/12/18 21:08 Dose: 1 applic Oxycodone HCl (Roxicodone -) 5 mg PO Q8H PRN PRN Reason: PAIN LEVEL 6-10 - Allergies Allergies: Allergies Allergy/AdvReac Type Severity Reaction Status Date / Time aspirin Allergy Unknown Verified 12/07/18 20:42 - Current Living Status Usual Living Arrangement: Snf - Current Mental Status Evaluation Appearance: Well Groomed Attitude: Cooperative - Affect Affect: Constrictive Appropriateness: Appropriate to Content - Mood Mood: Euthymic - Speech/Language Expressive: Delayed - Psychomotor Activity Psychomotor Activity: Hyperactive - Thought Process Thought Process: Circumstantial - Thought Content Hallucinations: Absent Delusions: Absent - Self Perception Self Perception: No Impairment - Cognition Attention: Diminished Memory, Immediate Recall: Impaired Memory, Short Term: 2/3 Memory, Remote with Promptin/3 - Concentration Serial Sevens Intact: No Simple Calculations Intact: No - Abstraction Proverb Interpretation: Impaired Judgement: Minimally Impaired - Insight Insight: Impaired - Impulse Control Impulse Control: Good Control - Suicidal Ideation Suicidal Ideation: No - Homicidal Ideation Homicidal Ideation: No Assessment/Plan 1) No psych meds needed as she is not displaying any aggressive behaviour. 2) Patient is not Akathetic , on no anti psychotic meds. 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 Would get a NEuro Consult to verify it.
[2018-12-13] MEDS: NYSTATIN 100,000 UNIT/GM TOPICAL CREAM 15 GM TUBE TP SCH (13:54)
[2018-12-13] MEDS: BACITRACIN 15 GM TUBE TOPICAL OINTMENT TP SCH (13:57)
[2018-12-13] MEDS ORDERED: MINERAL OIL ENEMA 133 ML ENEMA PR ONE (14:17)
--- NOTE | 2018-12-13 14:59 | PN ---
Teaching Attending Note Name of Resident: Vinny Lamas ATTENDING PHYSICIAN STATEMENT I saw and evaluated the patient. I reviewed the resident's note and discussed the case with the resident. I agree with the resident's findings and plan as documented. SUBJECTIVE:resting comfortable, fatigued. easily awakens to verbal stimuli but not verbal on my encounter as per this AM was complaining of cough productive of green sputum OBJECTIVE: Last Vital Signs Temp Pulse Resp BP Pulse Ox 98.6 F 94 H 18 154/93 97 12/13/18 13:44 12/13/18 13:44 12/13/18 13:44 12/13/18 13:44 12/12/18 21:00 General lethargic, opens eyes to verbal stimuli CV S1 S2 RRR no murmur lungs decreased breath sounds,. poor inspiratory effort Abdomen soft NT/ND ASSESSMENT AND PLAN: 78 year old female non-ambulatory [place] resident with history of Hypothyroidism, sent to ED with altered mental status. In the ED she was agitated requiring Ativan and Ketamine. Pt was found to have UTI 1. Acute toxic metabolic syndrome- initially thought to be from sepsis from UTI however is less responsive today. Initial Head CT was negative. multiple reports was more alert earlier today. will re-assess to see if mental status improves. did not receive any new medications. TSH WNL. will obtain CXR to evaluate for possible developing new infection. close neurological monitoring 2. Sepsis due to UTI- leuocytosis and tachycardia resolved. aefbrile. completed 5 days of Ceftriaxone and now switched to ceftin for 2 more days. will complete 12/14 3. ACute transaminitis- resolved 4. Hypokalemia- resolved 5. B/L leg wounds- appear healed. evaluated by wound team. wound care instructions per them. bacitracin daily, [id number] cabs to prevent shearing and cover with kerlex. offloading of pressure areas. 6. Hypothyroid- on LT4. TSH WNL 7. Functional quadriplegia 8. dementia 9. DVT ppx- hep sq
[2018-12-13] MEDS: DOCUSATE SODIUM 100 MG CAPSULE (FP) PO SCH (22:13)
[2018-12-14] MEDS: NYSTATIN 100,000 UNIT/GM TOPICAL CREAM 15 GM TUBE TP SCH ×2 (01:11→10:22)
[2018-12-14] MEDS: CEFUROXIME AXETIL 250 MG TABLET PO SCH ×2 (01:11→10:19)
[2018-12-14] MEDS: LEVOTHYROXINE NA 75 MCG TABLET (FP) PO SCH (06:16)
[2018-12-14] MEDS: HEPARIN NA (PORCINE) 5,000 UNITS/ML 1ML VIAL SQ SCH ×2 (06:16→15:00)
[2018-12-14] MEDS: BACLOFEN 10 MG TABLET (FP) PO SCH ×2 (06:16→15:00)
[2018-12-14] MEDS: GABAPENTIN 300 MG CAPSULE (FP) PO SCH ×2 (06:16→15:00)
--- NOTE | 2018-12-14 07:01 | PN ---
Physical Exam: SUBJECTIVE: Patient seen and examined. Patient seen and examined. Pt. was restless overnight and slept after a few hours. Pt. was confused. Pt. is voiding and having BMs. Pt. has a dry cough. OBJECTIVE: Vital Signs Period Temp Pulse Resp BP Sys/Zhao Pulse Ox Last 24 Hr 97.4 F-99.8 F 83-105 18-20 112-166/52-93 94-96 GENERAL: The patient is in no acute distress, baseline spasticity, alert and oriented to name only in AM HEAD: Normal with no signs of trauma. EYES: sclera anicteric, conjunctiva clear. ENT: Ears normal, nares patent, oropharynx clear without exudates, dry mucous membranes. LUNGS: Coarse breath sounds equal, clear to auscultation bilaterally, no wheezes , no crackles, no accessory muscle use. HEART: Regular rate and rhythm, S1, S2 without murmur ABDOMEN: Soft, mild LLQ tenderness to palpation, nondistended, normoactive bowel sounds EXTREMITIES: 2+ dorsal pedal pulses, warm, well-perfused, no edema, b/l anterior arevalo wounds on the arevalo- healing. NEUROLOGICAL: Normal speech, gait not observed. PSYCH: Normal mood, normal affect. SKIN: Warm, dry Laboratory Results - last 24 hr 12/13/18 12/13/18 06:30 06:30 WBC 8.9 RBC 3.98 Hgb 12.4 Hct 37.4 MCV 93.9 MCH 31.3 MCHC 33.3 RDW 14.1 Plt Count 302 MPV 9.1 Absolute Neuts (auto) 5.1 Neutrophils % 57.6 Lymphocytes % 22.6 D Monocytes % 13.2 H Eosinophils % 6.2 H D Basophils % 0.4 Nucleated RBC % 0 Sodium 138 Potassium 4.1 Chloride 107 Carbon Dioxide 25 Anion Gap 6 L BUN 6 L Creatinine 0.3 L Est GFR (CKD-EPI)AfAm 125.33 Est GFR (CKD-EPI)NonAf 108.14 Random Glucose 102 Calcium 8.8 Phosphorus 3.5 Magnesium 2.3 Total Bilirubin 0.6 AST 28 ALT 52 Alkaline Phosphatase 95 Total Protein 5.2 L Albumin 2.4 L Active Medications Home Medications Medication Instructions Recorded Baclofen [Lioresal -] 10 mg PO TID 12/08/18 Dextran 70/Hypromellose/Pf 1 each OP BID 12/08/18 [Artificial Tears Drops] Docusate Sodium [Colace] 200 mg PO HS 12/08/18 Duloxetine HCl 60 mg PO DAILY 12/08/18 Gabapentin [Neurontin] 300 mg PO Q8H 12/08/18 Levothyroxine [Synthroid -] 75 mcg PO DAILY 12/08/18 Oxycodone HCl/Acetaminophen 1 tab PO PRN PRN 12/08/18 [Percocet 5-325 mg Tablet] Sennosides [Senna] 8.6 mg PO DAILY 12/08/18 Current Medications Acetaminophen (Tylenol -) 325 mg PO Q8H PRN PRN Reason: PAIN LEVEL 6-10 Bacitracin (Bacitracin -) 1 applic TP DAILY [facility] Last Admin: 12/13/18 13:57 Dose: 1 applic Baclofen (Lioresal -) 10 mg PO TID [facility] Last Admin: 12/14/18 06:16 Dose: 10 mg Cefuroxime Axetil (Ceftin -) 250 mg PO BID [facility] Last Admin: 12/14/18 01:11 Dose: 250 mg Docusate Sodium (Colace -) 200 mg PO HS [facility] Last Admin: 12/13/18 22:13 Dose: 200 mg Duloxetine HCl (Cymbalta -) 60 mg PO DAILY [facility] Last Admin: 12/13/18 11:47 Dose: 60 mg Gabapentin (Neurontin -) 300 mg PO TID [facility] Last Admin: 12/14/18 06:16 Dose: 300 mg Heparin Sodium (Porcine) (Heparin -) 5,000 unit SQ TID [facility] Last Admin: 12/14/18 06:16 Dose: 5,000 unit Levothyroxine Sodium (Synthroid -) 75 mcg PO DAILY@0700 [facility] Last Admin: 12/14/18 06:16 Dose: 75 mcg Non-Formulary Medication (Dextran 70/Hypromellose/Pf [Artificial Tears Drops]) 1 each OP BID [facility] Nystatin (Mycostatin Cream -) 1 applic TP BID [facility] Last Admin: 12/14/18 01:11 Dose: 1 applic Oxycodone HCl (Roxicodone -) 5 mg PO Q8H PRN PRN Reason: PAIN LEVEL 6-10 ASSESSMENT/PLAN: 78 yo F with a known history of hypothyroidism, presented from [facility] because of altered mental status. #Acute metabolic encephalopathy likely 2/2 UTI-resolving U/A +, UCx. positive for Strep. Morbillorum Tachy, febrile 100.6 on admission Blood cultures, urine cultures pending Head CT: unremarkable- moderate volume loss, dilated ventricles CXR: Unremarkable Ceftriaxone for 5 days--> will switch to Ceftin for 2 more days for a total of 7 days d/c Zosyn ID consult appreciated (Dr. Gann) IVF Speech/swallow consult appreciated Fall precautions tylenol prn for fever Pt. was straight catherized for 695ccs retained urine. Low threshold to bladder scan and catheterized. f/u Psych recommendation for akathisia given history of Duloxetine #Transaminitis-resolving Likey d/t hypotension, will c/w to trend as Pt. is on Ceftriaxone Pt. unable to sit still for RUQ US. AST: 101-->74 ALT: 72-->74 ALP: 106 #Hypothyroidism Hold PO Synthroid c/w 75mcg IV #Functional Quadriplegia c/w Q2H position changes c/w PT c/w preventive skin care c/w feeding #FEN started D5-1/2NS @ 75ml /hour monitor electrolytes and replete as needed Dysphagia Puree #Dvt Ppx. Hep SQ TID Visit type - Emergency Visit Emergency Visit: Yes ED Registration Date: 12/08/18 Care time: The patient presented to the Emergency Department on the above date and was hospitalized for further evaluation of their emergent condition. - New Patient This patient is new to me today: No - Critical Care Critical Care patient: No - Discharge Referral Referred to [facility] Med P.C.: No
[2018-12-14 08:41] LABS: ALBUMIN 2.4 g/dl (3.4-5.0); BILIRUBIN,TOTAL 0.5 mg/dL (0.2-1); CALCIUM 8.9 mg/dL (8.5-10.1); CREATININE 0.3 mg/dL (0.55-1.3); MAGNESIUM 2.2 mg/dL (1.8-2.4); POTASSIUM 3.8 mmol/L (3.5-5.1); TOT PROT 5.2 g/dl (6.4-8.2)
[2018-12-14] MEDS: BACITRACIN 15 GM TUBE TOPICAL OINTMENT TP SCH (10:17)
[2018-12-14] MEDS: DULoxetine HCL 30 MG CAPSULE.DR (FP) PO SCH (10:18)
[2018-12-14] MEDS: oxyCODONE HCL 5 MG TABLET PO PRN ×2 (11:02→20:07)
[2018-12-14] MEDS ORDERED: MULTIVITAMINS (DAILY MVI) TABLET (FP) PO SCH (11:15)
--- NOTE | 2018-12-14 11:15 | PN ---
Teaching Attending Note Name of Resident: Vinny Lamas ATTENDING PHYSICIAN STATEMENT I saw and evaluated the patient. I reviewed the resident's note and discussed the case with the resident. I agree with the resident's findings and plan as documented. SUBJECTIVE:asymptomatic. denies Cp, SOB, fever, chills, N/V/C/D, dysuria or urinary frequency OBJECTIVE: Last Vital Signs Temp Pulse Resp BP Pulse Ox 98.5 F 96 H 18 162/77 94 L 12/14/18 09:12/14/18 09:12/14/18 09:12/14/18 09:12/13/18 17:50 General NAD, A&Ox3, slurred speech, bitemporal wasting, prominent clavicles, thin extremities CV S1 S2 RRR no murmur lungs CTA B/L no wheezing/rales, rhonchi Abdomen soft NT/ND ASSESSMENT AND PLAN: 78 year old [place]ambulatory [place] resident with history of Hypothyroidism, sent to ED with altered mental status. In the ED she was agitated requiring Ativan and Ketamine. Pt was found to have UTI 1. Acute toxic metabolic syndrome- initially thought to be from sepsis from UTI. pt is alert and returned to baseline. 2. Sepsis due to UTI- leuocytosis and tachycardia resolved. aefbrile. completed 5 days of Ceftriaxone and now switched to ceftin for 2 more days. will complete abx today. 3. ACute transaminitis- resolved 4. Moderate malnutrition- as evident by body habitus, and poor po intake. puree diet with nectar thickened liquids. add with ensure pudding BID and magalie cup, MVI. encourage po intake. assistance with meals 5. Hypokalemia- resolved 6. B/L leg wounds- appear healed. evaluated by wound team. wound care instructions per them. bacitracin daily, [id number] cabs to prevent shearing and cover with kerlex. offloading of pressure areas. 7. Hypothyroid- on LT4. TSH WNL 8. Functional quadriplegia 9. dementia 10. DVT ppx- hep sq 11. DNR/DNI. plan to d/c to SNF today
--- NOTE | 2018-12-14 11:57 | PN ---
Progress Note, MAJOR GIFTS DIRECTOR - Note Progress Note: Selected Entries 12/12/18 12/12/18 12/13/18 10:26 18:30 02:00 Breakfast 50% Supper 100% Temperature 98.6 F 12/13/18 06:00 Breakfast Supper Temperature 98.0 F Laboratory Tests 12/13/18 06:30 WBC 8.9 Selected Entries 12/12/18 12/13/18 12/13/18 18:30 02:00 06:00 Breakfast Lunch Supper 100% Temperature 98.6 F 98.0 F 12/13/18 12/13/18 12/13/18 12:13 13:44 18:30 Breakfast 0 Lunch 75% Supper 50% Temperature 98.6 F 99.8 F H 12/13/18 12/14/18 12/14/18 19:52 06:46 09:19 Breakfast Lunch Supper Temperature 97.4 F L 98.4 F 98.5 F Concur with PMD-Moderate malnutrition- as evident by body habitus, and poor po intake. puree diet with nectar thickened liquids. add with ensure pudding BID and magalie cup, MVI. encourage po intake. assistance with meals Consider adding 2calHN as well which is nectar thick.
--- NOTE | 2018-12-14 12:12 | DS ---
Physical Exam: SUBJECTIVE: Patient seen and examined. No acute events overnight. Pt. denies any acute complaints. OBJECTIVE: Vital Signs Period Temp Pulse Resp BP Sys/Zhao Pulse Ox Last 24 Hr 97.4 F-99.8 F 83-105 18-20 112-166/52-93 94 PHYSICAL EXAM GENERAL: The patient is in no acute distress, baseline spasticity, alert and oriented to name only in AM HEAD: Normal with no signs of trauma. EYES: sclera anicteric, conjunctiva clear. ENT: Ears normal, nares patent, oropharynx clear without exudates, dry mucous membranes. LUNGS: Coarse breath sounds equal, clear to auscultation bilaterally, no wheezes , no crackles, no accessory muscle use. HEART: Regular rate and rhythm, S1, S2 without murmur ABDOMEN: Soft, mild LLQ tenderness to palpation, nondistended, normoactive bowel sounds EXTREMITIES: 2+ dorsal pedal pulses, warm, well-perfused, no edema, b/l anterior arevalo wounds on the arevalo- healing. NEUROLOGICAL: Normal speech, gait not observed. PSYCH: Normal mood, normal affect. SKIN: Warm, dry LABS Laboratory Results - last 24 hr 12/14/18 07:00 Sodium 137 Potassium 3.8 Chloride 103 Carbon Dioxide 26 Anion Gap 8 BUN 7 Creatinine 0.3 L Est GFR (CKD-EPI)AfAm 125.33 Est GFR (CKD-EPI)NonAf 108.14 Random Glucose 139 H Calcium 8.9 Magnesium 2.2 Total Bilirubin 0.5 AST 20 ALT 46 Alkaline Phosphatase 98 Total Protein 5.2 L Albumin 2.4 L HOSPITAL COURSE: Date of Admission:12/08/18 Date of Discharge: 12/14/18 Pt. is an 78 y.o. F presenting from [facility] for Acute metabolic encephalopathy secondary to UTI. Head CT was unremarkable. CXR was unremarkable. UCx. were positive Strep. Morbillorum. BCx. were unremarkable. Pt. completed 5 days of IV ceftriaxone and an additional 2 days of PO ceftin. ID consult to Dr. Gann appreciated. Pt. was found to be moderately malnourished and started on supplementation of Magic Cup, Ensure and multivitamin. On admission Pt. was found to have b/l arevalo wounds and was treated with wound care. Concern was raised for akathisia, however this was ruled out by Psychiatry consult. Hospital course was discussed and agreed upon with Pt., family and medical staff. Minutes to complete discharge: 35 Discharge Summary Reason For Visit: AMS Current Active Problems Leg wound, right (Acute) Hypothyroid (Chronic) Restless (Chronic) Condition: Improved - Instructions Diet, Activity, Other Instructions: You came in for altered mental status. We imaged your head and did not show any acute problems. Please follow a puree diet with nectar thickened liquids. Ensure you swallow between each bite. Sit upright when eating. Continue with magic cup and ensure puddings with each feeding to ensure you are consuming enough calories and protein per day We found that you had a urinary tract infection. We treated you with a complete course of antibiotics (total of 7). Please resume all your medications as they were prescribed. Wound Care instructions: 1) Bacitracin to bilateral wounds daily, keep clean 2) Kurlex and 4x4 over scabs to protect and avoid sheering forces across skin 3) Offload pressure sensitive areas Please follow up with your PCP, Dr. Putnam, within 1 week. Referrals: Dru Putnam MD [Primary Care Provider] - 1 Week Disposition: ASSISTED FACILITY - Home Medications Comprehensive Discharge Medication List: Ambulatory Orders Baclofen [Lioresal -] 10 mg PO TID 12/08/18 Dextran 70/Hypromellose/Pf [Artificial Tears Drops] 1 each OP BID 12/08/18 Docusate Sodium [Colace] 200 mg PO HS 12/08/18 Duloxetine HCl 60 mg PO DAILY 12/08/18 Gabapentin [Neurontin] 300 mg PO Q8H 12/08/18 Levothyroxine [Synthroid -] 75 mcg PO DAILY 12/08/18 Oxycodone HCl/Acetaminophen [Percocet 5-325 mg Tablet] 1 tab PO PRN PRN Sennosides [Senna] 8.6 mg PO DAILY 12/08/18 This patient is new to me today: No Emergency Visit: Yes ED Registration Date: 12/08/18 Care time: The patient presented to the Emergency Department on the above date and was hospitalized for further evaluation of their emergent condition. Critical Care patient: No - Discharge Referral Referred to [facility] Med P.C.: No
[2018-12-14 20:21] VITALS: BP 125/75; PULSE 112; TEMP 98.1
== END 2018-12-14 20:23 | DRG 871 ==
LOC: JER 20:06 → JERBED 12-08 02:11 → J5S 12-08 11:28 → J8W 12-13 17:11
PROVIDERS: ADMIT Internal Medicine; ATTEND Internal Medicine
PROC: 0T9B70Z Drainage of Bladder with Drainage Device, Via Natural or Artificial Opening (ICD-10-PCS; principal; 2018-12-09)
DX: A40.8 Other streptococcal sepsis (principal); G92 Toxic encephalopathy; R53.2 Functional quadriplegia; N39.0 Urinary tract infection, site not specified; R64 Cachexia; E44.0 Moderate protein-calorie malnutrition; E03.9 Hypothyroidism, unspecified; E87.6 Hypokalemia; E86.0 Dehydration; R45.1 Restlessness and agitation; Z99.3 Dependence on wheelchair; Z66 Do not resuscitate; K59.00 Constipation, unspecified; R33.9 Retention of urine, unspecified; Z68.20 Body mass index [BMI] 20.0-20.9, adult; F03.90 Unspecified dementia, unspecified severity, without behavioral disturbance, psychotic disturbance, mood disturbance, and anxiety; R74.0 Nonspecific elevation of levels of transaminase and lactic acid dehydrogenase [LDH]; S80.12XA Contusion of left lower leg, initial encounter; W18.39XA Other fall on same level, initial encounter; Y93.89 Activity, other specified; Y92.128 Other place in nursing home as the place of occurrence of the external cause; Y99.8 Other external cause status
CPT/HCPCS: 36415; 70450-TC; 71045-TC-FY; 74230-TC-FY; 80048; 80053; 81003; 82550; 82607; 82803; 82962; 83605; 83735; 84100; 84443; 84484; 85025; 85027; 85610; 85730; 86593; 86850; 86900; 86901; 87040; 87086; 87186; 92611-GN; 93005; 93010; 97116-GP; 99284-25; J0131; J0475; J1644; J7030